=== PATIENT | female | born 1930 | race Caucasian/White ===

== ENCOUNTER 2016-10-31 15:25 | Inpatient (IN) | payer MEDICARE, OTHER ==
[~2016-10-31] VITALS: Ht 170.2 cm; Wt 71.8 kg
[2016-10-31] VITALS (8 sets, daily range): BP systolic 164–186; BP diastolic 70–100; PULSE 66–74; RESP 14–19; O2SAT 98–100
[~2016-10-31 15:25] MED LIST: FEM2.5T PO; GLPZ5T1 PO; LEVO50TA83 PO; Labetalol 5 mg/mL 20 mL Inj IV ONE; METO100T PO; MTF850T PO; OMEP20TA86 PO; ZOC20 PO
[2016-10-31] MEDS ORDERED: ASCO1TAB12 PO (15:50)
[2016-10-31] MEDS ORDERED: GLIM1TAB PO (15:50)
[2016-10-31] MEDS ORDERED: CALC-786 PO (15:50)
[2016-10-31] MEDS ORDERED: NITR100C PO (15:53)
[2016-10-31] MEDS ORDERED: METF1000 PO (15:53)
[2016-10-31] MEDS ORDERED: LOSA100T29 PO (15:53)
[2016-10-31] MEDS ORDERED: SIMV20TA4 PO (15:54)
[2016-10-31] MEDS ORDERED: LEVO50TA39 PO (15:54)
[2016-10-31] MEDS ORDERED: TOP100 PO (15:55)
[2016-10-31] MEDS ORDERED: CHOL100045 PO (15:55)
[2016-10-31 16:11] LABS: APPEARANCE,URINE CLEAR (CLEAR,HAZY); COLOR,URINE YELLOW (YELLOW); OCCULT BLOOD,URINE TRACE (NEGATIVE); PH,URINE 5.5 (5.0-8.0); UROBILINOGEN,URINE NORMAL (NORMAL)
--- NOTE | 2016-10-31 16:31 | NUR ---
Admit nurse note Admission assessment completed with assistance from records from Urgent Care. Pt. states she fell 6 months ago after stepping on a grape in the grocery store, and broke her shoulder. She fell again August 21 while trying to pull her grandkids down a hill on a makeshift sled. AT that time she hit her head on hard micky ground. She fell again approx 2 months ago while walking backwards carrying a chair. She states she tripped over the carpet edge. Pt. denies pain except in her Left neck when she turns her head to the left. is at bedside and attending MD in with pt. asking about wishes for level of care. Med history obtained via PCP list, pt. verifies. Allergies partially verified. Pt. does not remember any allergy aside from codeine. BP and IV care to be given on only Left arm due to hx of breast ca and partial mastectomy with 1 lymph removed on the right. Pt. oriented to care, as well as prevention of increased ICP. She is laying in the bed, relaxing, with at bedside. Report given to receiving DEONTE Cook.
[2016-10-31 16:35] LABS: BASOPHILS % (AUTO) 0.5 % (0-3); EOSINOPHILS % (AUTO) 1.9 % (0-5); MONOCYTES % (AUTO) 11.1 % (4-12); Mean Corpuscular Hemoglobin 30.5 pg (27.0-35.0); Mean Corpuscular Volume 87.7 fL (81-100); NEUTROPHILS % (AUTO) 65.7 % (40-74); Platelet Count 215 bil/L (150-400)
[2016-10-31] MEDS ORDERED: NiCARdipine Inj 25 MG in Dextrose 5% 240 ML IV SCH (16:40)
[2016-10-31 17:00] LABS: INR 0.92 ratio
--- NOTE | 2016-10-31 17:27 | NUR ---
Admit Pt brought over from in w/c. In report from it was stated pt's VSS were stable, but upon arrival pt's BP was 186/100. Pt situated in bed and advised to call if she needs to get up. paged. Pt A&O x 3, OLIVAS, RA, equal maintainer central office strength, pupils equal and reactive. Pt states she has a black spot in her peripheral vision of the right eye that has been there within the last two weeks. Admission done by admission RN. Pt oriented to room and call light.
[2016-10-31] MEDS ORDERED: Labetalol 5 mg/mL 20 mL Inj IV ONE (17:30)
--- NOTE | 2016-10-31 18:03 | NUR ---
Assist with Labetalol administration. Blood pressure 177/79, HR 66. Denies pain, marketing analytics lead equal, speech clear, face symmetrical. Labetolol 20mg given at 1755 with blood pressure 170/70 at six minutes after dose and 168/73 at 15 minutes. Update to be given to Dr Mccullough.
--- NOTE | 2016-10-31 19:29 | NUR ---
Transfer Pt transferred to room 2023 in w/c. Report given to DEONTE Mike. Pt's BP's still elevated. A&O x 3, BRENDON, denies pain.
--- NOTE | 2016-10-31 20:02 | PCM.HPMED ---
Subjective Date of Service Oct 31, 2016 Primary Provider: Admitting Physician: César Hunter Primary Care Physician: Aspen Lincoln Attending Physician: César Hunter Chief Complaint: Weak and dizzy. History of Present Illness: Ms. Ashley Phipps is a very pleasant 86 year old lady with a past medical history of Diabetes, Hyperlipidemia, Hypertension, and Hypothyroid who presents as a direct admit from the [facility] Urgent care due to CT findings of Acute on Chronic 10x5x2 cm Subdural Hematoma. She reports 3 falls in the last 6 months; First 6 months ago falling on her right shoulder, 3 months ago fell backwards and hit her head "hard" on the kitchen floor, and 08/21 fell in a field and once again hit the back of her had on the hard ground. She notes 1 month history of patchy loss of vision in her right eye, and 2 week history of "wall walking." She states during this time she was very unsteady on her feet and felt she would fall. She denies vertigo, syncope, headache, cognitive dysfunction or focal neurologic deficits such as limb weakness. She denies fever , chills, nausea, vomiting, chest pain or palpitations, shortness of breath, abdominal pain, constipation, diarrhea. She reports chronic incontinence of bowel and bladder. Of note:She has not been checking her blood pressure at home in the last 2 weeks. She reports recent difficulties with UTI's for which she has been on 3 different antibiotics in the recent months. Her recent visits to physicians have focused on her UTI as the main cause of her symptoms of weakness and dizziness. Social: She lives at home with her , Guillaume. Full code. Initial Vitals: T -36.4, HR - 69, RR - 16, BP - 186/100, 100 % RA. CT - Subdural chronic and acute hematoma over the left posterior frontal and parietal lobes with compression of the ventricles and sulci on the left. EKG was reviewed and showed normal sinus rhythm. She Received 5mg IV Labetalol x 2 pushes to reach SBP goal of <160. Review of Systems: A comprehensive review of systems was conducted with the patient and found to be negative except as above in the History of Present Illness. Constitutional: Negative, except as otherwise mentioned in the history above. Ophthalmologic: Negative, except as otherwise mentioned in the history above. Cardiovascular: Negative, except as otherwise mentioned in the history above. Respiratory: Negative, except as otherwise mentioned in the history above. Gastrointestinal: Negative, except as otherwise mentioned in the history above. Genitourinary: Negative, except as otherwise mentioned in the history above. Musculoskeletal: Negative, except as otherwise mentioned in the history above. Neurological: Negative, except as otherwise mentioned in the history above. Psychiatric: Negative, except as otherwise mentioned in the history above. Hematologic/Lymphatic: Negative, except as otherwise mentioned in the history above. Allergic/Immunologic: Negative, except as otherwise mentioned in the history above. Allergies Coded Allergies: codeine (Verified Allergy, Severe, very wobbly, tongue swelling, 10/31/16) Opioids - Morphine Analogues (Unverified Allergy, Unknown, doesn't remember this allergy, 10/31/16) hydrocodone bitartrate (Unverified Allergy, Unknown, doesn't remember this allergy, 10/31/16) hydromorphone (Unverified Allergy, Unknown, doesn't remember this allergy , 10/31/16) oxycodone (Unverified Allergy, Unknown, doesn't remember this allergy, 01/07) Home Medications Ascorbate Calcium/Bioflavonoid 2 each BID Calcium Carb & Cit/Vit D3 2 each BID Cholecalciferol 1000U BID Glimepiride 1 MG Daily AC Levothyroxine 50 Mcg Daily Losartan 100 Mg Daily Metformin 1000 MG BID Metoprolol Succinate ER 100 Mg Daily Nitrofurantoin Macrocrystal 100 MG BID Simvastatin 20 MG PO Q2Day Exam Vital Signs & I/O Intake and Output- Last 8 Hour 11/01/16 Cumulative From/Thru 06:59 10/31/16 16:33 - 10/31/16 19:29 Intake Total 0 ml Output Total 800 ml Balance -800 ml Intake Oral 0 ml Output Urine Total 800 ml # Bowel Movements 0 Lab & Micro Results Laboratory Tests Test 10/31/16 15:57 10/31/16 16:21 10/31/16 16:40 Urine Color Yellow (YELLOW) Urine Appearance Clear (CLEAR,HAZY) Urine pH 5.5 (5.0-8.0) Urine Specific [place] 1.010 (1.003-1.035) Urine Protein Negativemg/dL (NEG,TRACE) Urine Glucose (UA) Negativemg/dL (NEGATIVE) Urine Ketones Negativemg/dL (NEGATIVE) Urine Occult Blood Trace (NEGATIVE) Urine Nitrite Negative (NEGATIVE) Urine Bilirubin Negative (NEGATIVE) Urine Urobilinogen Normalmg/dL (NORMAL) Urine Leukocyte Esterase Trace (NEGATIVE) Urine RBC 0-2/hpf (0-2) Urine WBC 6-10/hpf (0-5) Urine Epithelial Cells Occasional/hpf (NONE-MOD) Urine Crystals None seen (NONE SEEN) Urine Bacteria None/hpf (NONE-FEW) Urine Hyaline Casts None/lpf (NONE) Urine Granular Casts None seen (NONE SEEN) Urine Waxy Casts None seen (NONE SEEN) Urine Red Blood Cell Casts None seen (NONE SEEN) Urine White Blood Cell Casts None seen (NONE SEEN) Urine Mucus None seen (None Seen) Urine Trichomonas None seen (NONE SEEN) Urine Yeast None (NONE SEEN) Urinalysis Comment None Urine Culture Reflexed Indicated White Blood Count 5.9th/mm3 (3.8-10.1) Red Blood Count 4.30mil/mm3 (3.90-5.20) Hemoglobin 13.1g/dL (12.0-15.6) Hematocrit 37.7% (35.0-46.0) Mean Corpuscular Volume 87.7fL (81-100) Mean Corpuscular Hemoglobin 30.5pg (27.0-35.0) Mean Corpuscular Hemoglobin Concent 34.7% (32.0-37.0) Red Cell Distribution Width 12.4% (12.3-15.4) Platelet Count 215bil/L (150-400) Neutrophils (%) (Auto) 65.7% (40-74) Lymphocytes (%) (Auto) 20.8% (14-46) Monocytes (%) (Auto) 11.1% (4-12) Eosinophils (%) (Auto) 1.9% (0-5) Basophils (%) (Auto) 0.5% (0-3) Sodium Level 129mEq/L (134-144) Potassium Level 4.3mEq/L (3.5-5.2) Chloride Level 91mEq/L (97-108) Carbon Dioxide Level 22mmol/L (18-29) Blood Urea Nitrogen 19mg/dL (8-27) Creatinine 0.64mg/dL (0.57-1.00) Estimat Glomerular Filtration Rate 126mL/min (>59) Glucose Level 124mg/dL (60-99) Calcium Level 10.0mg/dL (8.5-10.1) Total Bilirubin 0.2mg/dL (0.0-1.2) Aspartate Amino Transf (AST/SGOT) 13U/L (0-50) Alanine Aminotransferase (ALT/SGPT) 15U/L (0-32) Alkaline Phosphatase 82U/L (25-165) Total Protein 7.8g/dL (6.4-8.4) Albumin 4.5g/dL (3.4-5.0) Prothrombin Time 9.8sec (8.1-12.5) Prothromb Time International Ratio 0.92ratio Microbiology 10/31/16 Urine Culture - Preliminary, Resulted No growth to date Result Diagram: 10/31/16 1621 10/31/16 1621 PMH Urinary Urge incontinence Bowel incontinence Hypertension DM Hyperlipidemia Hypothyroid GERD Surgical History Cholecystectomy Family History Mother passed from pancreatic cancer Father Heart disease Social History Hx Alcohol Use: No Hx Substance Use: No Hx Tobacco Use: No Exam Vital Signs Vital Sign - Last Date Time Temp Pulse Resp B/P Pulse Ox O2 Delivery O2 Flow Rate FiO2 10/31/16 18:33 175/73 10/31/16 18:10 70 16 99 Room Air 10/31/16 17:32 36.4 Exam General: No acute distress, well-developed, well-nourished, appropriately interactive HEENT: Normocephalic, atraumatic. External ears without defect. Pupils equal, round, and reactive to light and accommodation. Patient reports a "blind spot" in the right eye upper right visual field. Anicteric sclerae, moist conjunctivae, and no lid lag. Oropharynx free of erythema and cobble stoning with moist mucosa. Neck: Supple with full range of motion. No jugular venous distension. No bruits. No lymphadenopathy or thyromegaly. Cardiovascular: Regular rate and rhythm with no murmurs, rubs, or gallops appreciated Pulmonary: Clear to auscultation bilaterally with no crackles, wheezes, or rhonchi. Normal respiratory effort with no use of accessory muscles. Abdomen: Bowel tones present. Soft, nontender, nondistended. No hepatosplenomegaly or masses appreciated. Extremities: No clubbing, cyanosis, edema, or lymphadenopathy appreciated. Skin: Normal temperature, turgor, and texture; no rash, ulcers, or subcutaneous nodules appreciated. Neurological: Cranial nerves grossly intact. Normal muscle strength, tone, and bulk. Reflexes, coordination, and sensory function within normal limits. Unsteady gait. Psychiatric: Normal mood and affect. Alert and oriented to person, place, and time. Lab and Diagnostics Result Diagram: 10/31/16 1621 10/31/16 1621 X-Rays, CTs and MRIs CT BRAIN WITHOUT CONTRAST IMPRESSION: Subdural chronic and acute hematoma over the left posterior frontal and parietal lobes with compression of the ventricles and sulci on the left. Approved by: Hai Burgess M.D. on 10/31/2016 at 14:39 Assessment & Plan Ms. Ashley Combs is an 86 year old lady with Hypertension, HLD, DM, Hypothyroid with 3 ground level falls in the past 6 months, 2 with traumatic head impact, who presents from the urgent care as a direct admit for CT findings of a 10x5x2 acute on chronic subdural hematoma. She is being treated for hypertension but otherwise stable at the moment. Acute on Chronic Subdural Hematoma. Present on admission. Active. - CT as above. - Control Blood pressure with SBP goal of < 160. - 5 mg labetalol IV 2x given. Will attempt to control with pushes. If this is difficult will transition to nicardipine ggt. - Working on Transfer. [facility] accepted, however no beds available. Attempting [facility]. - Repeat CT head to assess interval progression. Hypertension, present on admission. Active. - Patient claims medication compliance, not checking BP's at home. - Control Blood pressure with SBP goal of < 160. - 5 mg labetalol IV 2x given. Will attempt to control with pushes. If this is difficult will transition to nicardipine ggt. - Will resume home medications in the am. Losartan 100 Mg Daily and Metoprolol Succinate ER 100 mg Daily. Chronic conditions. Diabetes - Holding home Glimepiride 1 MG Daily AC- Metformin 1000 MG BID Hyperlipidemia - Continue home Simvastatin. Hypothyroid - Continue Levothyroxine 50 Mcg Daily Acetaminophen for mild pain when necessary. Bowel regimen Senna and MiraLAX scheduled and PRN. Zofran when necessary for nausea and vomiting. SubQ heparin held due to subdural hematoma. SCDs in place. Social: Lives at home with , Arben. High-risk medications: NONE. Patient Status: Patient is admitted under inpatient status with expected length of stay greater than 2 midnights due to severity of presenting symptoms, risk of adverse event, and complexity of treatment plan. Pain Evaluation: Adequate Pain Control VTE Mechanical Devices: Intermittant Pneumatic CD Resuscitation Status: CPR: Attempt Resuscitation Attending Statement The patient was seen and examined together with Dr. Mccullough on 10/31/16 and I agree with the history, exam and plan as outlined in the note above. It should be noted that given that patient had significant hypertension and acute subdural hematoma without any reported head trauma, the hypertension was felt to be hypertensive emergency. Plan was made to transfer patient to ICU for Nicardipine drip until she could be transferred to Neuro-ICU at higher level care facility. REGINA MCCULLOUGH DO Oct 31, 2016 19:23 César Hunter Nov 01, 2016 08:26
--- NOTE | 2016-10-31 20:03 | PCM.DIMED ---
Discharge Instructions Date of Service Oct 31, 2016 Dates of Hospitalization Oct 31, 2016 at 15:32 Discharge Diagnosis Discharge Diagnosis Acute on chronic Subdural Hematoma. Medication Instructions Additional med instructions Nicardipine ggt for SBP < 160. Test Results Test Results CT Head w/out contrast. IMPRESSION: Subdural chronic and acute hematoma over the left posterior frontal and parietal lobes with compression of the ventricles and sulci on the left Approved by: Hai Burgess M.D. on 10/31/2016 at 14:39 Patient Instructions Patient Instructions Transfer to [facility]. Follow-up plan Follow with the recommendations provided by the physician at [facility]. REGINA VU DO Oct 31, 2016 20:03
--- NOTE | 2016-10-31 20:08 | PCM.DC.MED ---
Discharge Summary Date of Service Oct 31, 2016 Dates of Hospitalization Date of Hospital Admission Oct 31, 2016 at 15:32 Date of Discharge: Oct 31, 2016 Providers: Admitting Physician: César Hunter Primary Care Physician: Aspen Lincoln Attending Physician: César Hunter Diagnosis at Time of Discharge Diagnosis at Time of Discharge Acute on chronic Subdural Hematoma. Procedures XRay, CTs & MRIs CT BRAIN WITHOUT CONTRAST IMPRESSION: Subdural chronic and acute hematoma over the left posterior frontal and parietal lobes with compression of the ventricles and sulci on the left. Approved by: Hai Burgess M.D. on 10/31/2016 at 14:39 Brief History Ms. Ashley Phipps is a very pleasant 86 year old lady with a past medical history of Diabetes, Hyperlipidemia, Hypertension, and Hypothyroid who presents as a direct admit from the [facility] care due to CT findings of Acute on Chronic 10x5x2 cm Subdural Hematoma. She reports 3 falls in the last 6 months; First 6 months ago falling on her right shoulder, 3 months ago fell backwards and hit her head "hard" on the kitchen floor, and 08/21 fell in a field and once again hit the back of her had on the hard ground. She notes 1 month history of patchy loss of vision in her right eye, and 2 week history of "wall walking." She states during this time she was very unsteady on her feet and felt she would fall. She denies vertigo, syncope, headache, cognitive dysfunction or focal neurologic deficits such as limb weakness. She denies fever , chills, nausea, vomiting, chest pain or palpitations, shortness of breath, abdominal pain, constipation, diarrhea. She reports chronic incontinence of bowel and bladder. Of note:She has not been checking her blood pressure at home in the last 2 weeks. She reports recent difficulties with UTI's for which she has been on 3 different antibiotics in the recent months. Her recent visits to physicians have focused on her UTI as the main cause of her symptoms of weakness and dizziness. Social: She lives at home with her , Guillaume. Full code. Initial Vitals: T -36.4, HR - 69, RR - 16, BP - 186/100, 100 % RA. CT - Subdural chronic and acute hematoma over the left posterior frontal and parietal lobes with compression of the ventricles and sulci on the left. EKG was reviewed and showed normal sinus rhythm. She Received 5mg IV Labetalol x 2 pushes to reach SBP goal of <160. Hospital Course Ms. Ashley Combs is an 86 year old lady with Hypertension, HLD, DM, Hypothyroid with 3 ground level falls in the past 6 months, 2 with traumatic head impact, who presents from the urgent care as a direct admit for CT findings of a 10x5x2 acute on chronic subdural hematoma. She is being treated for hypertension but otherwise stable at the moment. Acute on Chronic Subdural Hematoma. Present on admission. Active. - CT as above. - Control Blood pressure with SBP goal of < 160. - 5 mg labetalol IV 2x given. Will attempt to control with pushes. If this is difficult will transition to nicardipine ggt. - Working on Transfer. [facility] accepted, however no beds available. Attempting [facility] then . - Repeat CT head to assess interval progression. Hypertension, present on admission. Active. - Patient claims medication compliance, not checking BP's at home. - Control Blood pressure with SBP goal of < 160. - 5 mg labetalol IV 2x given. Will attempt to control with pushes. If this is difficult will transition to nicardipine ggt. - Will resume home medications in the am. Losartan 100 Mg Daily and Metoprolol Succinate ER 100 mg Daily. Chronic conditions. Diabetes - Holding home Glimepiride 1 MG Daily AC- Metformin 1000 MG BID Hyperlipidemia - Continue home Simvastatin. Hypothyroid - Continue Levothyroxine 50 Mcg Daily Acetaminophen for mild pain when necessary. Bowel regimen Senna and MiraLAX scheduled and PRN. Zofran when necessary for nausea and vomiting. SubQ heparin held due to subdural hematoma. SCDs in place. Social: Lives at home with , Arben. High-risk medications: NONE. Patient Status: Patient is admitted under inpatient status with expected length of stay greater than 2 midnights due to severity of presenting symptoms, risk of adverse event, and complexity of treatment plan. Exam Vital Signs (Last) Date Time Temp Pulse Resp B/P Pulse Ox O2 Delivery O2 Flow Rate FiO2 10/31/16 19:57 74 14 164/87 10/31/16 18:10 99 Room Air 10/31/16 17:32 36.4 Exam General: No acute distress, well-developed, well-nourished, appropriately interactive HEENT: Normocephalic, atraumatic. External ears without defect. Pupils equal, round, and reactive to light and accommodation. Patient reports a "blind spot" in the right eye upper right visual field. Anicteric sclerae, moist conjunctivae, and no lid lag. Oropharynx free of erythema and cobble stoning with moist mucosa. Neck: Supple with full range of motion. No jugular venous distension. No bruits. No lymphadenopathy or thyromegaly. Cardiovascular: Regular rate and rhythm with no murmurs, rubs, or gallops appreciated Pulmonary: Clear to auscultation bilaterally with no crackles, wheezes, or rhonchi. Normal respiratory effort with no use of accessory muscles. Abdomen: Bowel tones present. Soft, nontender, nondistended. No hepatosplenomegaly or masses appreciated. Extremities: No clubbing, cyanosis, edema, or lymphadenopathy appreciated. Skin: Normal temperature, turgor, and texture; no rash, ulcers, or subcutaneous nodules appreciated. Neurological: Cranial nerves grossly intact. Normal muscle strength, tone, and bulk. Reflexes, coordination, and sensory function within normal limits. Unsteady gait. Psychiatric: Normal mood and affect. Alert and oriented to person, place, and time. Test 10/31/16 15:57 10/31/16 16:21 10/31/16 16:40 Urine Color Yellow (YELLOW) Urine Appearance Clear (CLEAR,HAZY) Urine pH 5.5 (5.0-8.0) Urine Specific [place] 1.010 (1.003-1.035) Urine Protein Negativemg/dL (NEG,TRACE) Urine Glucose (UA) Negativemg/dL (NEGATIVE) Urine Ketones Negativemg/dL (NEGATIVE) Urine Occult Blood Trace (NEGATIVE) Urine Nitrite Negative (NEGATIVE) Urine Bilirubin Negative (NEGATIVE) Urine Urobilinogen Normalmg/dL (NORMAL) Urine Leukocyte Esterase Trace (NEGATIVE) Urine RBC 0-2/hpf (0-2) Urine WBC 6-10/hpf (0-5) Urine Epithelial Cells Occasional/hpf (NONE-MOD) Urine Crystals None seen (NONE SEEN) Urine Bacteria None/hpf (NONE-FEW) Urine Hyaline Casts None/lpf (NONE) Urine Granular Casts None seen (NONE SEEN) Urine Waxy Casts None seen (NONE SEEN) Urine Red Blood Cell Casts None seen (NONE SEEN) Urine White Blood Cell Casts None seen (NONE SEEN) Urine Mucus None seen (None Seen) Urine Trichomonas None seen (NONE SEEN) Urine Yeast None (NONE SEEN) Urinalysis Comment None Urine Culture Reflexed Indicated White Blood Count 5.9th/mm3 (3.8-10.1) Red Blood Count 4.30mil/mm3 (3.90-5.20) Hemoglobin 13.1g/dL (12.0-15.6) Hematocrit 37.7% (35.0-46.0) Mean Corpuscular Volume 87.7fL (81-100) Mean Corpuscular Hemoglobin 30.5pg (27.0-35.0) Mean Corpuscular Hemoglobin Concent 34.7% (32.0-37.0) Red Cell Distribution Width 12.4% (12.3-15.4) Platelet Count 215bil/L (150-400) Neutrophils (%) (Auto) 65.7% (40-74) Lymphocytes (%) (Auto) 20.8% (14-46) Monocytes (%) (Auto) 11.1% (4-12) Eosinophils (%) (Auto) 1.9% (0-5) Basophils (%) (Auto) 0.5% (0-3) Sodium Level 129mEq/L (134-144) Potassium Level 4.3mEq/L (3.5-5.2) Chloride Level 91mEq/L (97-108) Carbon Dioxide Level 22mmol/L (18-29) Blood Urea Nitrogen 19mg/dL (8-27) Creatinine 0.64mg/dL (0.57-1.00) Estimat Glomerular Filtration Rate 126mL/min (>59) Glucose Level 124mg/dL (60-99) Calcium Level 10.0mg/dL (8.5-10.1) Total Bilirubin 0.2mg/dL (0.0-1.2) Aspartate Amino Transf (AST/SGOT) 13U/L (0-50) Alanine Aminotransferase (ALT/SGPT) 15U/L (0-32) Alkaline Phosphatase 82U/L (25-165) Total Protein 7.8g/dL (6.4-8.4) Albumin 4.5g/dL (3.4-5.0) Prothrombin Time 9.8sec (8.1-12.5) Prothromb Time International Ratio 0.92ratio Discharge Medications Discharge Medications Ascorbate Calcium/Bioflavonoid (Lizeth-C 500 mg Tablet) 1 Each Tablet 2 EACH PO BID (Reported) Calcium Carb & Cit/Vitamin D3 (Citracal + D ER Tablet) 1 Each Tablet.er 2 EACH PO BID (Reported) Cholecalciferol (Vitamin D3) (Vitamin D) 1,000 Unit Capsule 2,000 UNIT PO DAILY (Reported) Glimepiride (Glimepiride) 1 Mg Tablet 1 MG PO DAILYAC (Reported) Levothyroxine (Levoxyl) 50 Mcg Tablet 50 MCG PO QAM (Reported) Losartan Potassium (Losartan Potassium) 100 Mg Tablet 100 MG PO DAILY (Reported ) Metformin (Glucophage) 1,000 Mg Tablet 1,000 MG PO BID (Reported) Metoprolol Succinate ER (Toprol XL) 100 Mg Tablet 100 MG PO DAILY (Reported) Nitrofurantoin Macrocrystal (Nitrofurantoin Macrocrystal) 100 Mg Capsule 100 MG PO BID (Reported) Simvastatin (Simvastatin) 20 Mg Tablet 20 MG PO Q2DAY (Reported) Additional med instructions Nicardipine ggt for SBP < 160. Followup Plan Disposition: Transfer to an acute care facility with a neurosurgery unit. Follow-up plan Follow with the recommendations provided by the physician at [facility]. Patient Instructions Transfer to [facility]. Time spent 40 min Attending Statement The patient was seen and examined together with Dr. Mccullough on 10/31/16 and I agree with the history, exam and plan as outlined in the note above. REGINA MCCULLOUGH DO Oct 31, 2016 20:08 César Hunter Nov 01, 2016 08:27
[2016-10-31] MEDS ORDERED: Nitrofurantoin Monohyd-Macrocryst 100 mg Capsule PO SCH (20:30)
--- NOTE | 2016-10-31 20:43 | DRSVH ---
PROCEDURE: CT BRAIN WITHOUT CONTRAST ([id number]) INDICATIONS: interval CT for SDH TECHNIQUE: Noncontrast 4.5 mm thick angled axial sections acquired from the foramen magnum to the vertex, with c oronal reformats. COMPARISON: None. FINDINGS: Image quality: Excellent. CSF spaces: Basal cisterns are patent. No new extra-axial fluid collections. The ventricles are un changed in size and shape. Brain: The previously identified left convexity subdural hematoma is again seen, with moderate assoc iated mass effect and internal radiodensity indicating subacute subdural hematoma rather than acute o r long-standing chronic hemorrhage. This structure measures approximately 10.2 cm maximal AP dimensi on and 2.0 cm in thickness with a transverse oblique dimension of 4.8 cm.. There is cerebral volume loss for age, with resultant ventricular and sulcal prominence. There are periventricular and deep w jennifer matter chronic small vessel ischemic changes. There is intracranial internal carotid artery ath erosclerosis. Skull and face: Calvarium and visualized facial bones appear intact, without suspicious lesions. Sinuses: Visualized sinuses and mastoids are clear. IMPRESSION: Subdural hematoma on the left as previously was present earlier today, without appreciab le manager of change time from the study that was performed at approximately 14:00 this afternoon. No new hemorrhage has developed, no change in mild to moderate mass effect on the left as was previously the case. Dictated by: Denis Bunn M.D. on 10/31/2016 at 20:37 Approved by: Denis Bunn M.D. on 10/31/2016 at 20:41
[2016-10-31] MEDS ORDERED: Polyethylene Glycol (PEG) 17 Gm Powder PO PRN (21:00)
[2016-10-31] MEDS ORDERED: Ondansetron 2 mg/mL 2 mL Inj IVPUSH PRN (21:00)
[2016-10-31] MEDS ORDERED: Alum-Mag Hydrox-Simeth 30 mL Suspension PO PRN (21:00)
--- NOTE | 2016-10-31 21:07 | NUR ---
Pt rec'd from [facility] at 1945. Denies pain, SBP 160's, all other VSS. BG 113. Able to ambulate SBA from WC to bed. Neuro eval WNL with exception of some dizziness and black spot in R peripheral vision. Taken for CT scan at 2014. Room available at [facility], report given to DEONTE Beckett in neuro ICU. Pt transported via [facility] at 2049.
[2016-11-01] MEDS ORDERED: MeTOProlol XL 50 mg ER24 Tablet PO SCH (08:30)
== END 2016-10-31 20:50 | disposition short-term general hospital (02) | DRG 65 ==
LOC: OSC 15:32 → PCC 20:00
PROVIDERS: ADMIT Internal Medicine; ATTEND Internal Medicine
DX: I62.01 Nontraumatic acute subdural hemorrhage (principal); I16.1 Hypertensive emergency; Z91.81 History of falling; E11.9 Type 2 diabetes mellitus without complications; E78.5 Hyperlipidemia, unspecified; E03.9 Hypothyroidism, unspecified; I10 Essential (primary) hypertension; I62.03 Nontraumatic chronic subdural hemorrhage

== ENCOUNTER 2016-11-08 11:39 | Inpatient (IN) | payer MEDICARE, OTHER ==
[~2016-11-08] VITALS: Ht 167.6 cm; Wt 71.2 kg
[~2016-11-08 11:39] MED LIST changes: +ASCO1TAB12 PO; +CALC-786 PO; +CHOL100045 PO; -FEM2.5T PO; +GLIM1TAB PO; -GLPZ5T1 PO; +LEVO50TA39 PO; -LEVO50TA83 PO; +LOSA100T29 PO; -Labetalol 5 mg/mL 20 mL Inj IV ONE; +METF1000 PO; -METO100T PO; -MTF850T PO; +NITR100C PO; -OMEP20TA86 PO; +SIMV20TA4 PO; +TOP100 PO; -ZOC20 PO
[2016-11-08 11:49] VITALS: BP 152/81; PULSE 70; RESP 14; O2SAT 97
--- NOTE | 2016-11-08 11:57 | ED.REPORT ---
HPI-General Illness Date of Service Nov 08, 2016 ED Provider: Ronald Conley Patient is an 86 year old female with a hx of Hypothyroid, HTN, hyperlipidemia, DM, and breast cancer who presents to the ED via EMS from [facility] complaining of AMS yesterday evening. Family noticed that she has had progressive weakness over the last new months that is worse since last night. Family reports that she could not move her R leg or R arm this morning. Associated symptoms include confusion and trouble completing sentences. Her symptoms are gradually improving. She is not able to provide hx for us at this time. She hospitalized 8 days ago for an acute on chronic subdural hematoma. A CT indicated a subdural chronic and acute hematoma over the left posterior frontal and parietal lobes with compression of the ventricles and sulci on the left. She was discharged from [facility] 5 days ago. She had a recent UTI for which she just finished abx for. Patient is DNR/DNI. Nursing Notes Stated Complaint: POSSIBLE CVA Chief Complaint: Neuro Symptoms/ Deficits Nursing Notes Reviewed: Yes Allergies: Coded Allergies: codeine (Verified Allergy, Severe, very wobbly, tongue swelling, 10/31/16) Opioids - Morphine Analogues (Unverified Allergy, Unknown, doesn't remember this allergy, 10/31/16) hydrocodone bitartrate (Unverified Allergy, Unknown, doesn't remember this allergy, 10/31/16) hydromorphone (Unverified Allergy, Unknown, doesn't remember this allergy , 10/31/16) oxycodone (Unverified Allergy, Unknown, doesn't remember this allergy, 01/07) Scheduled Ascorbate Calcium/Bioflavonoid (Lizeth-C 500 mg Tablet) 1 Each Tablet 2 EACH PO BID Calcium Carb & Cit/Vitamin D3 (Citracal + D ER Tablet) 1 Each Tablet.er 2 EACH PO BID Cholecalciferol (Vitamin D3) (Vitamin D) 1,000 Unit Capsule 2,000 UNIT PO DAILY Glimepiride (Glimepiride) 1 Mg Tablet 1 MG PO DAILYAC Levothyroxine (Levoxyl) 50 Mcg Tablet 50 MCG PO QAM Losartan Potassium (Losartan Potassium) 100 Mg Tablet 100 MG PO DAILY Metformin (Glucophage) 1,000 Mg Tablet 1,000 MG PO BID Metoprolol Succinate ER (Toprol XL) 100 Mg Tablet 100 MG PO DAILY Nitrofurantoin Macrocrystal (Nitrofurantoin Macrocrystal) 100 Mg Capsule 100 MG PO BID Simvastatin (Simvastatin) 20 Mg Tablet 20 MG PO Q2DAY General Time Seen by MD: 11:57 Chief Complaint Altered mental status Hx Obtained From: Other family... Arrived By: Ambulance Sudden in Onset?: Yes Onset Occurred: Yesterday Symptom Duration: Since onset Severity: Current: No pain currently Severity: Maximum: No pain Additional Notes: confusion trouble speaking Pertinent Negative: Relieved by nothing Context Related History: Reports Cancer Past Medical History Past Medical History Notes: DNR/DNI Past Medical History Hypothyroid Silent migrains HTN Hyperlipidemia Diverticulosis GERD DM R breast cancer Acute on chronic subdural hematoma Past Surgical History lumpectomy partial mastectomy Reports: Appendectomy, Cataract surgery, Cholecystectomy Unable to Obtain History Past medical history, Past surgical history, Family history, Smoking history, Social history, Occupation, Ambulatory status Review of Systems Unable to Obtain ROS Patient condition, Mental status Physical Exam Nursing note and vitals reviewed. Constitutional: Well-developed, well-nourished. Not diaphoretic. Head: Normocephalic and atraumatic. Mouth/Throat: Oropharynx is clear and moist. No oropharyngeal exudate. Eyes: EOM are normal. Pupils are equal, round, and reactive to light. Neck: Supple, no tracheal deviation. Cardiovascular: Normal rate, regular rhythm. Equal and intact distal pulses throughout. Pulmonary/Chest: Effort normal and breath sounds luis a. No respiratory distress. Abdominal: Soft. No distension. There is no tenderness, rebound, or guarding. Bowel sounds present. Musculoskeletal: Range of motion grossly intact. No edema or tenderness appreciated. Neurological: Alert. Sensation intact and equal to bilateral upper and lower extremities. 5+ left lower extremity strength, 4+ right lower extremity strength. Weakness with flexion of the R arm. No facial droop. Skin: Warm and dry, no rashes or pallor appreciated. Psychiatric: Difficult to assess secondary to patient condition. Vital Signs Vital Signs Date Time Temp Pulse Resp B/P Pulse Ox O2 Delivery O2 Flow Rate FiO2 11/08/16 15:30 69 12 146/63 99 Room Air 11/08/16 14:24 74 15 135/76 99 Room Air 11/08/16 12:59 76 14 175/73 99 Room Air 11/08/16 11:49 37.1 70 14 152/81 97 Room Air Initial VS: Reviewed Interpretation & Diagnostics Lab Results Interpretation Result Diagram: 11/08/16 1447 11/08/16 1447 Test 11/08/16 13:36 11/08/16 14:47 Urine Color Straw (YELLOW) Urine Appearance Hazy (CLEAR,HAZY) Urine pH 7.0 (5.0-8.0) Urine Specific Pratt 1.010 (1.003-1.035) Urine Protein Negativemg/dL (NEG,TRACE) Urine Glucose (UA) 100mg/dL (NEGATIVE) Urine Ketones Negativemg/dL (NEGATIVE) Urine Occult Blood Trace (NEGATIVE) Urine Nitrite Negative (NEGATIVE) Urine Bilirubin Negative (NEGATIVE) Urine Urobilinogen Normalmg/dL (NORMAL) Urine Leukocyte Esterase Small (NEGATIVE) Urine RBC 3-10/hpf (0-2) Urine WBC 11-50/hpf (0-5) Urine Epithelial Cells Occasional/hpf (NONE-MOD) Urine Crystals None seen (NONE SEEN) Urine Bacteria Few/hpf (NONE-FEW) Urine Hyaline Casts None/lpf (NONE) Urine Granular Casts None seen (NONE SEEN) Urine Waxy Casts None seen (NONE SEEN) Urine Red Blood Cell Casts None seen (NONE SEEN) Urine White Blood Cell Casts None seen (NONE SEEN) Urine Mucus None seen (None Seen) Urine Trichomonas None seen (NONE SEEN) Urine Yeast None (NONE SEEN) Urinalysis Comment None Urine Culture Reflexed Indicated White Blood Count 6.1th/mm3 (3.8-10.1) Red Blood Count 4.37mil/mm3 (3.90-5.20) Hemoglobin 13.4g/dL (12.0-15.6) Hematocrit 38.0% (35.0-46.0) Mean Corpuscular Volume 87.0fL (81-100) Mean Corpuscular Hemoglobin 30.7pg (27.0-35.0) Mean Corpuscular Hemoglobin Concent 35.3% (32.0-37.0) Red Cell Distribution Width 12.2% (12.3-15.4) Platelet Count 206bil/L (150-400) Neutrophils (%) (Auto) 66.4% (40-74) Lymphocytes (%) (Auto) 21.9% (14-46) Monocytes (%) (Auto) 8.9% (4-12) Eosinophils (%) (Auto) 2.3% (0-5) Basophils (%) (Auto) 0.5% (0-3) Sodium Level 134mEq/L (134-144) Potassium Level 4.3mEq/L (3.5-5.2) Chloride Level 94mEq/L (97-108) Carbon Dioxide Level 22mmol/L (18-29) Blood Urea Nitrogen 14mg/dL (8-27) Creatinine 0.63mg/dL (0.57-1.00) Estimat Glomerular Filtration Rate 128mL/min (>59) Glucose Level 93mg/dL (60-99) Calcium Level 9.7mg/dL (8.5-10.1) Magnesium Level 1.8mg/dL (1.6-2.6) Total Bilirubin 0.4mg/dL (0.0-1.2) Aspartate Amino Transf (AST/SGOT) 19U/L (0-50) Alanine Aminotransferase (ALT/SGPT) 32U/L (0-32) Alkaline Phosphatase 70U/L (25-165) Total Protein 7.8g/dL (6.4-8.4) Albumin 4.1g/dL (3.4-5.0) Alcohols < 10mg/dL (0-10) X-Ray Chest Interpretation Chest Xray Interpretation: IMPRESSION: No acute pulmonary process. 9 mm ill-defined right basilar nodular opacity as above. It is not well identified on prior exam. Three-month interval followup is recommended. Dictated by: Rehana Edwadrs M.D. on 11/08/2016 at 14:36 Approved by: Rehana Edwards M.D. on 11/08/2016 at 14:38 View: Portable, 1 view Interpretation / Wet Read by: Interpret - Radiologist CT Head Interpretation IMPRESSION: 1. Evolving left frontal subdural hematoma compared to 10/31/16 with areas of hyperdensity concerning for superimposed acute hemorrhage. 2. Moderate atrophy and chronic microvascular ischemic changes. The findings were discussed with Dr. Ronald Conley on 11/08/16 at 1:34 PM. Dictated by: Rehana Edwards M.D. on 11/08/2016 at 13:32 Approved by: Rehana Edwards M.D. on 11/08/2016 at 13:39 Study: Head CT no contrast Interpretation / Wet Read by: Interpret - Radiologist Re-Eval/Medical Decision Med Decision/Clinical Course In summary, 86 old female with a recent history of fall and subdural hematoma presenting to the ED for evaluation of altered mental status, right-sided weakness that started yesterday. Differential includes metabolic abnormality, systemic infectious process, CVA, worsening of her underlying subdural hematoma , etc. TPA was considered in this patient, however not given given that she has a known subdural hematoma. Her repeat CT scan demonstrates an evolving left sided subdural hematoma with concern for possible acute hemorrhage. [facility] neurosurgery Dr. Cook consulted; after examining the images, he feels that this is not an acute bleed and that the membrane around the area of concern is thicker, not representing any new injury that would require intervention at this time. He does not recommend transfer or further intervention with neurosurgery aside from routine follow-up. Vitals here in the ED grossly within normal limits with the exception of some mild hypertension. CMP grossly within normal limits. CBC grossly within normal limits. Urinalysis demonstrates 11-50 white blood cells and a small amount of leukocyte esterase, as well as occasional epithelial cells; family states that the patient has been on antibiotics for urinary tract infection for "months". She has not been endorsing any dysuria. Given somewhat equivocal urinalysis, this seems less likely to be causing her acute change advisor the last 24 hours, however it may be contributing. Started on antibiotics here in the ED. Chest x -ray with no acute pulmonary process; there is a 9 mm ill-defined right basilar nodular opacity - this was discussed with the patient and her family, including the need for follow-up as an outpatient. In the setting of new confusion, some changes in her level of disorientation, and intermittent right-sided weakness, plan admission for further management and evaluation of altered mental status and suspected CVA. Patient and family are agreeable to the plan as stated, no further questions. Source of Hx: Old records, Family Time of Eval: 14:55 Re-Evaluation/Progress Note: Discussed chest Xray result with patient and family. Consultation : Call Returned at: 15:04 Note: Attempted to discuss pt's case with [facility] Neurosurgery but they have been unable to access imaging. Will try to send images and make contact again. Counseled Regarding: Diagnosis, Lab results, Need for follow-up, Need for admission Discharge & Departure Primary Impression: Altered mental status, unspecified Additional Impressions: CVA (cerebral vascular accident) CVA mechanism: unspecified Qualified Code: I63.9 - Cerebral infarction, unspecified Subdural hematoma UTI (urinary tract infection) Urinary tract infection type: site unspecified Hematuria presence: without hematuria Qualified Code: N39.0 - Urinary tract infection, site not specified Disposition: ADMITTED TO HOSPITAL Discharge Condition All VS Reviewed: Yes Condition: Stable Referrals: [facility] (PCP) Crit Care Except Billable Proc Time Spent: 75-104 minutes Services Performed: Patient management by me, Time spent at bedside, Reviewing test results, Reviewing imaging, Discussing patient care, Documentation in record, Time with fam/surrogate Critical Care Notes: Please see MDM. [place] Attestation Portions of this note were transcribed by Galina Jones. I, Dr. Conley personally performed the history, physical exam and medical decision-making; I reviewed and confirmed the accuracy of the information in the transcribed note. Signed by: Diallo Ashton, 11/08/16 copies to: [facility] William B MD Nov 08, 2016 11:57 GALINA JONES Nov 08, 2016 14:17
[2016-11-08 12:59] VITALS: BP 175/73; PULSE 76; RESP 14; O2SAT 99
--- NOTE | 2016-11-08 13:41 | DRSVH ---
PROCEDURE: CT BRAIN WITHOUT CONTRAST ([id number]) INDICATIONS: neuro changes TECHNIQUE: Noncontrast 4.5 mm thick angled axial sections acquired from the foramen magnum to the vertex, with c oronal reformats. COMPARISON: [facility], CT, CT BRAIN WO CON, 10/31/2016, 13:55. [facility], CT, CT BRAIN WO CON, 10/31/2016, 20:19. FINDINGS: Image quality: Excellent. CSF spaces: Basal cisterns are patent. No extra-axial fluid collections. The ventricles are symmet kenyetta in size and shape. Brain: The previously identified subdural hematoma along the left frontal lobe has demonstrated inte rval evolving post hemorrhage changes. There are development of areas of low-attenuation consistent w ith resolving previous hemorrhage. However, there are several areas of hyperdensity, which are concer mt to have developed since the prior exam. Questionable 1-2 mm left to right midline shift, unchang ed. There is cerebral volume loss for age, with resultant ventricular and sulcal prominence. There are p eriventricular and deep white matter chronic small vessel ischemic changes. There is intracranial in ternal carotid artery atherosclerosis. Skull and face: Calvarium and visualized facial bones appear intact, without suspicious lesions. Sinuses: Visualized sinuses and mastoids are clear. IMPRESSION: 1. Evolving left frontal subdural hematoma compared to 10/31/16 with areas of hyperdensity concerning for superimposed acute hemorrhage. 2. Moderate atrophy and chronic microvascular ischemic changes. The findings were discussed with Dr. Ronald Conley on 11/08/16 at 1:34 PM. Dictated by: Rehana Edwards M.D. on 11/08/2016 at 13:32 Approved by: Rehana Edwards M.D. on 11/08/2016 at 13:39
[2016-11-08 14:01] LABS: APPEARANCE,URINE HAZY (CLEAR,HAZY); COLOR,URINE STRAW (YELLOW)
[2016-11-08 14:02] LABS: OCCULT BLOOD,URINE TRACE (NEGATIVE); UROBILINOGEN,URINE NORMAL (NORMAL)
[2016-11-08 14:24] VITALS: BP 135/76; PULSE 74; RESP 15; O2SAT 99
--- NOTE | 2016-11-08 14:40 | DRSVH ---
PROCEDURE: X-RAY CHEST ONE VIEW, PORTABLE ([id number]) INDICATIONS: AMS TECHNIQUE: One view of the chest was acquired. COMPARISON: [facility], , CHEST 2VW, 04/06/2012, 14:12. FINDINGS: Surgical changes and devices: None. Lungs and pleura: Ill-defined nodular opacity is present within the right base measuring approximatel y 9 mm. This may have been present on prior exam, although this area is not as well visualized. Mediastinum: Mediastinal contours appear normal. Heart size is normal. Bones and chest wall: No suspicious bony lesions. Overlying soft tissues appear unremarkable. IMPRESSION: No acute pulmonary process. 9 mm ill-defined right basilar nodular opacity as above. It is not well identified on prior exam. Three-month interval followup is recommended. Dictated by: Rehana Edwards M.D. on 11/08/2016 at 14:36 Approved by: Rehana Edwards M.D. on 11/08/2016 at 14:38
[2016-11-08 14:54] LABS: BASOPHILS % (AUTO) 0.5 % (0-3); EOSINOPHILS % (AUTO) 2.3 % (0-5); MONOCYTES % (AUTO) 8.9 % (4-12); Mean Corpuscular Hemoglobin 30.7 pg (27.0-35.0); NEUTROPHILS % (AUTO) 66.4 % (40-74); Platelet Count 206 bil/L (150-400)
[2016-11-08 15:17] LABS: Magnesium 1.8 mg/dL (1.6-2.6)
[2016-11-08 15:30] VITALS: BP 146/63; PULSE 69; RESP 12; O2SAT 99
[2016-11-08] MEDS ORDERED: ACET325T51 PO (17:17)
[2016-11-08] MEDS ORDERED: MAGN400O4 PO (17:17)
[2016-11-08] MEDS ORDERED: NA P133E23 RC (17:17)
[2016-11-08] MEDS ORDERED: BISA10SU61 RC (17:17)
[2016-11-08] MEDS ORDERED: POLY17PO6 PO (17:17)
[2016-11-08] MEDS ORDERED: ASCO-294 PO (17:20)
[2016-11-08] MEDS ORDERED: LOSA50TA37 PO (17:21)
[2016-11-08] MEDS ORDERED: levoFLOXacin Inj 750 MG in IV Premix 1 EACH IV ONE (17:25)
[2016-11-08] MEDS ORDERED: Ondansetron 2 mg/mL 2 mL Inj IVPUSH PRN (18:00)
[2016-11-08] MEDS ORDERED: Alum-Mag Hydrox-Simeth 30 mL Suspension PO PRN (18:00)
--- NOTE | 2016-11-08 18:04 | PCM.HPMED ---
Subjective Date of Service Nov 08, 2016 Primary Provider: Admitting Physician: Fidencio Ferguson MD Primary Care Physician: [facility] Attending Physician: Fidencio Ferguson MD Chief Complaint: Altered Mental Status History of Present Illness: Patient is an 86y/o female with past medical history of HTN, DM type II non insulin dependent, R Breast Cancer, and hypothyroid presented to [facility] ED with altered mental status and right sided weakness. Patient was seen at [facility] two weeks ago for a left subdural hematoma. A CT indicated a subdural chronic and acute hematoma over the left posterior frontal and parietal lobes with compression of the ventricles and sulci on the left. She was discharged from [facility] 5 days ago. Today, patient's daughter visited her at [facility], and noticed that she was not able to complete her sentences, and would stop speaking in the middle of her thoughts. She would say "I don't understand what is going on." She also reported increasing right upper extremity and right lower extremity. Patient was unable to initiate any movement in her right arm. It is noted that the patient had residual right sided weakness from the subdural one week ago. Patient answers questions regarding current physical state, but does not remember the events leading up to her visit here. Daughter states that she has had 3-4 falls since July and August. She currently denies CP, SOB, ABD pain, N/V/D, headache, difficulty urinating, urinary hesitancy, or back pain. In the ED, patient received a CT noncontrast of brain. Her repeat CT scan demonstrates an evolving left sided subdural hematoma with concern for possible acute hemorrhage. [facility] neurosurgery Dr. Cook consulted; after examining the images, he feels that this is not an acute bleed and that the membrane around the area of concern is thicker, not representing any new injury that would require intervention at this time. He does not recommend transfer or further intervention with neurosurgery aside from routine follow-up. per Dr. Yael MD Review of Systems: ROS reviewed and otherwise negative unless noted above Allergies Coded Allergies: codeine (Verified Allergy, Severe, very wobbly, tongue swelling, 10/31/16) Opioids - Morphine Analogues (Unverified Allergy, Unknown, doesn't remember this allergy, 10/31/16) hydrocodone bitartrate (Unverified Allergy, Unknown, doesn't remember this allergy, 10/31/16) hydromorphone (Unverified Allergy, Unknown, doesn't remember this allergy , 10/31/16) oxycodone (Unverified Allergy, Unknown, doesn't remember this allergy, 01/07) Home Medications Ascorbate Calcium/Bioflavonoid (Lizeth-C 500 mg Tablet) 1 Each Tablet 2 EACH PO BID Calcium Carb & Cit/Vitamin D3 (Citracal + D ER Tablet) 1 Each Tablet.er 2 EACH PO BID Cholecalciferol (Vitamin D3) (Vitamin D) 1,000 Unit Capsule 2,000 UNIT PO DAILY Glimepiride (Glimepiride) 1 Mg Tablet 1 MG PO DAILYAC Levothyroxine (Levoxyl) 50 Mcg Tablet 50 MCG PO QAM Losartan Potassium (Losartan Potassium) 100 Mg Tablet 100 MG PO DAILY Metformin (Glucophage) 1,000 Mg Tablet 1,000 MG PO BID Metoprolol Succinate ER (Toprol XL) 100 Mg Tablet 100 MG PO DAILY Nitrofurantoin Macrocrystal (Nitrofurantoin Macrocrystal) 100 Mg Capsule 100 MG PO BID Simvastatin (Simvastatin) 20 Mg Tablet 20 MG PO Q2DAY PMH Hypothyroid Silent migrains HTN Hyperlipidemia Diverticulosis GERD DM R breast cancer Acute on chronic subdural hematoma Surgical History lumpectomy partial mastectomy Appendectomy Cataract surgery Cholecystectomy Family History Father: Cancer, Diabetes Mother: Cancer Social History Occupation: Retired Hx Alcohol Use: No Hx Substance Use: No Hx Tobacco Use: No Living Arrangement: Long-Term Facility Exam Vital Signs Vital Sign - Last Date Time Temp Pulse Resp B/P Pulse Ox O2 Delivery O2 Flow Rate FiO2 11/08/16 15:30 69 12 146/63 99 Room Air 11/08/16 11:49 37.1 Exam Constitutional: Awake, but tired appearing. Not oriented to person, place, time , or situation. Frail. No acute distress. Head: normocephalic and atraumatic Eyes: Pupils equal round and reactive to light. EOMI. no scleral icterus. Visual gallegos poor; however, she was not able to determine how many fingers I held up when they were right in front of her. Patient has no reported history of visual deficits. Heart: regular rate and rhythm. No peripheral edema. Lungs: clear to auscultation. no wheeze, rales, or rhonchi. ABD: soft, mild tenderness in suprapubic region with associated fullness. bowel sounds present throughout. Musculoskeletal: Able to lift LUE and LLE off of bed. 5/5 vine pruner strength on L hand, 2/5 vine pruner strength with inability to relax in R hand. Inability to hold RUE extended for more than 6 seconds. Skin: warm, dry, no rash Neuro: CN II-XII intact, no focal deficits. Good sensation in bilateral UE and LE. weakness of RUE. Inability to lift RLE off of bed. Psych: Flat affect. not oriented to person, place, time, or situation. Would not provide an answer, but would just say "I don't know" Lab and Diagnostics Labs Item Value Date Time Red Blood Count 4.37 mil/mm3 11/08/161446 Mean Corpuscular Volume 87.0 fL 11/08/161446 Mean Corpuscular Hemoglobin 30.7 pg 11/08/161446 Mean Corpuscular Hemoglobin Concent 35.3 % 11/08/161446 Red Cell Distribution Width 12.2 % L 11/08/161446 Neutrophils (%) (Auto) 66.4 % 11/08/16 144 Lymphocytes (%) (Auto) 21.9 % 11/08/16 144 Monocytes (%) (Auto) 8.9 % 11/08/16 144 Eosinophils (%) (Auto) 2.3 % 11/08/16 144 Basophils (%) (Auto) 0.5 % 11/08/161446 Estimat Glomerular Filtration Rate 128 mL/min 11/08/16 144 Calcium Level 9.7 mg/dL 11/08/161446 Magnesium Level 1.8 mg/dL 11/08/16 144 Total Bilirubin 0.4 mg/dL 11/08/16 144 Aspartate Amino Transf (AST/SGOT) 19 U/L 11/08/16 144 Alanine Aminotransferase (ALT/SGPT) 32 U/L 11/08/16 144 Alkaline Phosphatase 70 U/L 11/08/16 144 Total Protein 7.8 g/dL 11/08/16 144 Albumin 4.1 g/dL 11/08/16 1447 Alcohols < 10 mg/dL 11/08/16 144 Result Diagram: 11/08/16 14411/08/16 1447 Microbiology Urine Culture Pending X-Rays, CTs and MRIs PROCEDURE: CT BRAIN WITHOUT CONTRAST IMPRESSION: 1. Evolving left frontal subdural hematoma compared to 10/31/16 with areas of hyperdensity concerning for superimposed acute hemorrhage. 2. Moderate atrophy and chronic microvascular ischemic changes. The findings were discussed with Dr. Ronald Conley on 11/08/16 at 1:34 PM. Dictated by: Rehana Edwards M.D. on 11/08/2016 at 13:32 PROCEDURE: X-RAY CHEST ONE VIEW, PORTABLE IMPRESSION: No acute pulmonary process. 9 mm ill-defined right basilar nodular opacity as above. It is not well identified on prior exam. Three-month interval followup is recommended. Dictated by: Rehana Edwards M.D. on 11/08/2016 at 14:36 12-lead ECG Sinus arrhythmia Assessment & Plan Patient is an 86y/o female with past medical history of HTN, DM type II non insulin dependent, R Breast Cancer, and hypothyroid presented to [facility] ED with altered mental status and right sided weakness. Patient was seen at [facility] two weeks ago for a left subdural hematoma. 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 Patient stable at this time, [facility] has been consulted on these changes and feels patient is stable enough to stay overnight for AM MRI - MRI scheduled for tomorrow morning. Will discuss findings with neurosurgery pending results. - Consult neurology. -Permissive hypertension. Keep blood SBP 165 to 180. Do not use acute blood pressure lowering agents as this could cause an ischemic event. -Avoid nephrotoxic agents as patient will likely receive contrast for AM MRI. -Avoid anticoagulation. Use SCDs. Acute Cystitis, POA, Active -Positive leukocyte esterase with WBCs on UA -Levaquin IV, adjust or remove pending culture - Urine cultures pending Diabetes Mellitus type II, Chronic, POA, active. - patient takes metformin and Glimepiride -Continue Glimepiride -Hold metformin -Insuling gtt Hypothyroidism, chronic, POA, active - Patient NPO, start 25mcg levothyroxine IM Hypertension, chronic, POA, active - patient takes Losartan and metoprolol succinate - Hold home meds for permissive hypertension Famotidine for PPI Acetaminophen for pain Dulcolax for Constipation SCD for DVT prophylaxis Patient is admitted to inpatient status with anticipated length of stay greater than 2 mid nights, this is based on diagnosis, treatment plan, and risk of adverse events. CODE STATUS: DNR/DNI VTE Prophylaxis: SCDs Resuscitation Status: DNR/DNI:Do Not Resuscitate/Intubate Pain Evaluation: Adequate Pain Control GI Prophylaxis: Proton Pump Inhibitor VTE Prophylaxis Indicated: Contraindicated VTE Prophylaxis: SCDs Resuscitation Status: DNR/DNI:Do Not Resuscitate/Intubate Limited Interventions: Medications and IV Fluid Attending Statement Given the mental status changes and word finding difficulty present on admission , there is some concern for acute cerebrovascular event. MRI will be conducted as described above in Dr. Gillesipe's note. The patient was seen and examined together with Dr. Gillespie on 11/08/2016 and I agree with the history, exam and plan as outlined in the note above. . Moo Gillespie DO Nov 08, 2016 18:04 Fidencio Ferguson MD Nov 09, 2016 06:19
[2016-11-08] MEDS ORDERED: Magnesium Hydroxide 355 mL Oral Suspension PO PRN (18:05)
[2016-11-08] MEDS ORDERED: Glucose 40% Oral Gel 15 Gm Tube PO PRN (18:05)
[2016-11-08] MEDS ORDERED: Polyethylene Glycol (PEG) 17 Gm Powder PO PRN (18:05)
[2016-11-08] MEDS ORDERED: Sodium Biphos-Phos 133 mL Enema RECTAL PRN (18:05)
[2016-11-08 18:28] VITALS: BP 170/66; PULSE 82; RESP 12; O2SAT 98
[2016-11-08 19:07] VITALS: BP 195/83; PULSE 80; RESP 16; O2SAT 98
[2016-11-08] MEDS: Calcium Carbonate (Oyster Shell) 500 mg Tablet PO SCH (20:25)
--- NOTE | 2016-11-08 20:26 | NUR ---
ADMIT; 86 yr old female with altered mental status, recent subdural hematoma to room 1020 via gurney from e.r. at approx. 1900. Answers questions with few words. Can't express where she is. Able to stratigraphy teacher my hand with her right hand. Lavon. Doesn't move right leg. Stephania #16fr placed at 2019, with light yellow urine resulting. Family at the bedside. Explained plan of care to family. Active listening done. NPO tonight. Addendum: 11/08/16 at 2337 by HONG MONTES DE OCA RN slight right side mouth droop when smiling.
[2016-11-08] MEDS: Famotidine Inj 20 MG in IV Premix 1 EACH IV SCH (21:40)
[2016-11-08] MEDS: Insulin LISPRO 300 Unit/3 mL Inj SUBQ SCH (22:00)
[2016-11-09] VITALS (8 sets, daily range): BP systolic 144–173; BP diastolic 72–88; PULSE 66–83; RESP 16–18; O2SAT 93–98
--- NOTE | 2016-11-09 03:41 | NUR ---
CRIMINOLOGY TEACHER; reports: sinus rhythm 83.
--- NOTE | 2016-11-09 04:03 | NUR ---
CV; bp 160/73. No c/o pain. Neuro checks remain unchanged from my earlier assessment.
[2016-11-09] MEDS ORDERED: Levothyroxine 100 mCg/5 mL Inj IV SCH (07:30)
--- NOTE | 2016-11-09 07:50 | NUR ---
Status 0730 MD notified that MRI/swallow eval have not yet been ordered. MD to review.
[2016-11-09] MEDS: Calcium Carbonate (Oyster Shell) 500 mg Tablet PO SCH ×2 (08:00→17:31)
[2016-11-09] MEDS: Famotidine Inj 20 MG in IV Premix 1 EACH IV SCH ×2 (08:30→20:19)
[2016-11-09] MEDS: Insulin LISPRO 300 Unit/3 mL Inj SUBQ SCH ×4 (09:24→22:12)
--- NOTE | 2016-11-09 11:21 | DRSVH ---
PROCEDURE: MRI BRAIN WITHOUT CONTRAST ([id number]) INDICATIONS: Altered mental status and right-sided weakness with subdural hematoma. TECHNIQUE: Non-contrast axial T1 spin echo, axial T2 fast spin echo, sagittal and axial FLAIR, coronal T2 fast s pin echo, axial gradient echo, axial diffusion and ADC through the brain. COMPARISON: [facility], CT, CT BRAIN WO CON, 10/31/2016, 20:19. [facility], CT, CT BRAIN WO CON, 11/08/2016, 13:19. FINDINGS: Image quality: Excellent. CSF spaces: There is a moderate to large left subdural hematoma redemonstrated at the vertex measuri ng up to 2.2 cm in thickness on coronal image 21 of series 10. This appears similar in size compared to the prior CT of 11/08/16 but slightly increased compared to the 10/31/16 study on which it measured approximately 1.9 cm. There is associated mass effect on the left frontal and parietal lobes with m inimal rightward midline shift of approximately 3 mm. There is also slight asymmetric narrowing of t he left basilar cisterns without definite transtentorial herniation. There is mild cerebral volume l oss with prominence of the ventricles and sulci. Brain: Diffusion weighted images demonstrate no acute infarcts. No intracranial mass. There are sc attered subcortical, periventricular, and deep white matter foci of T2 hyperintensity consistent with mild chronic small vessel ischemic changes. Brainstem appears normal. Normal intravascular flow vo ids are present. Skull and face: Calvarial bone marrow is normal in signal. Orbits are normal. Sinuses: There is mild mucosal thickening within the ethmoid sinuses. Mastoid air cells are clear. IMPRESSION: 1. Left subdural hematoma at the vertex appears similar in size compared to the recent CT but slight ly increased in size compared to the 10/31/16 CT suggesting interval hemorrhage. 2. Progressive increase in mild mass effect with slight rightward midline shift and slight asymmetri c narrowing of the left basilar cisterns without definite transtentorial herniation. 3. No acute infarcts. 4. Mild chronic white matter small vessel ischemic changes and cerebral volume loss. Dictated by: Josh Vicente M.D. on 11/09/2016 at 10:09 Approved by: Josh Vicente M.D. on 11/09/2016 at 10:20
--- NOTE | 2016-11-09 12:33 | NUR ---
Meds ok with non admin of pepcid this am. To resume with evening dose
--- NOTE | 2016-11-09 12:41 | NUR ---
Speech Unable to reach speech today. Per MD if pt able to pass nurse bedside swallow eval may have po meds. Looking for RN for bedside swallow.
[2016-11-09] MEDS: MeTOProlol XL 50 mg ER24 Tablet PO SCH (13:42)
--- NOTE | 2016-11-09 13:59 | NUR ---
Meds Per MD at 1300, pt ok to receive BP meds with goal SBP less than 140. HR stable. MD to dc speech eval and place diet order as pt only needs to pass nurse swallow eval. Addendum: 11/09/16 at 1511 by NATALY QUINN RN Pt may have thins liquids
--- NOTE | 2016-11-09 14:39 | PCM.PNMED ---
Subjective Date of Service Nov 09, 2016 Subjective Continues to right-sided weakness unchanged from presentation. Mentation improved and patient interactive. Exam Vital Signs Vital Sign - Last Date Time Temp Pulse Resp B/P Pulse Ox O2 Delivery O2 Flow Rate FiO2 11/09/16 13:39 78 145/81 97 Room Air 11/09/16 11:13 36.6 18 Intake and Output 11/08/16 11/08/16 11/09/16 Cumulative From/Thru 15:00 23:00 07:00 11/08/16 11:49 - 11/09/16 06:07 Intake Total 150 ml 0 ml 150 ml Output Total 0 ml 1000 ml 1000 ml Balance 150 ml -1000 ml -850 ml Intake Oral 0 ml 0 ml 0 ml IV Total 150 ml 150 ml Output Urine Total 0 ml 1000 ml 1000 ml # Bowel Movements 0 0 Exam Constitutional: Awake, but tired appearing. Not oriented to person, place, time , or situation. Frail. No acute distress. Head: normocephalic and atraumatic Eyes: Pupils equal round and reactive to light. EOMI. no scleral icterus. Visual gallegos poor; however, she was not able to determine how many fingers I held up when they were right in front of her. Patient has no reported history of visual deficits. Heart: regular rate and rhythm. No peripheral edema. Lungs: clear to auscultation. no wheeze, rales, or rhonchi. ABD: soft, mild tenderness in suprapubic region with associated fullness. bowel sounds present throughout. Musculoskeletal: Able to lift LUE and LLE off of bed. 5/5 bark skinner strength on L hand, 2/5 bark skinner strength with inability to relax in R hand. Inability to hold RUE extended for more than 6 seconds. Skin: warm, dry, no rash Neuro: CN II-XII intact, no focal deficits. Good sensation in bilateral UE and LE. weakness of RUE. Inability to lift RLE off of bed. Psych: Flat affect. oriented to person, place, but not to time, or situation. IVs and Medications Medications Reviewed: Medications were reviewed in detail Lab and Diagnostics Result Diagram: 11/08/16 1447 11/08/16 1447 Microbiology Urine Culture Pending X-Rays, CTs and MRIs PROCEDURE: CT BRAIN WITHOUT CONTRAST IMPRESSION: 1. Evolving left frontal subdural hematoma compared to 10/31/16 with areas of hyperdensity concerning for superimposed acute hemorrhage. 2. Moderate atrophy and chronic microvascular ischemic changes. The findings were discussed with Dr. Ronald Conley on 11/08/16 at 1:34 PM. Dictated by: Rehana Edwards M.D. on 11/08/2016 at 13:32 PROCEDURE: X-RAY CHEST ONE VIEW, PORTABLE IMPRESSION: No acute pulmonary process. 9 mm ill-defined right basilar nodular opacity as above. It is not well identified on prior exam. Three-month interval followup is recommended. Dictated by: Rehana Edwards M.D. on 11/08/2016 at 14:36 PROCEDURE: CT BRAIN WITHOUT CONTRAST ([id number]) INDICATIONS: neuro changes IMPRESSION: 1. Evolving left frontal subdural hematoma compared to 10/31/16 with areas of hyperdensity concerning for superimposed acute hemorrhage. 2. Moderate atrophy and chronic microvascular ischemic changes. The findings were discussed with Dr. Ronald Conley on 11/08/16 at 1:34 PM. Dictated by: Rehana Edwards M.D. on 11/08/2016 at 13:32 PROCEDURE: MRI BRAIN WITHOUT CONTRAST ([id number]) INDICATIONS: Altered mental status and right-sided weakness with subdural hematoma. IMPRESSION: 1. Left subdural hematoma at the vertex appears similar in size compared to the recent CT but slightly increased in size compared to the 10/31/16 CT suggesting interval hemorrhage. 2. Progressive increase in mild mass effect with slight rightward midline shift and slight asymmetric narrowing of the left basilar cisterns without definite transtentorial herniation. 3. No acute infarcts. 4. Mild chronic white matter small vessel ischemic changes and cerebral volume loss. Dictated by: Josh Vicente M.D. on 11/09/2016 at 10:09 12-lead ECG Sinus arrhythmia Assessment & Plan Patient is an 86y/o female with past medical history of HTN, DM type II non insulin dependent, R Breast Cancer, and hypothyroid presented to [facility] ED with altered mental status and right sided weakness. Patient was seen at [facility] two weeks ago for a left subdural hematoma. # Acute Expansion of Chronic Left Subdural Hematoma, POA, Active -patient was seen 8 days ago at [facility] for left subdural hematoma, evidence to suggest this is expanding on CT is seen. Patient stable at this time, [facility] has been consulted on these changes and feels patient is stable enough to stay overnight for AM MRI - MRI 11/09 bleeding slightly increased in size compared to the 10/31/16 CT suggesting interval hemorrhage.findings discussed with neurosurgery fellow at [facility] Dr Tee . he postulates increment in size more likely absorption of of fluid in to hematoma due to natural progression of hematoma phase than new bleed . recommends decadron 2mg q6h for 2 days then 2q8h for 2 days and taper off in the next few days ( 1-2 weeks) . no need to transfer to [facility] - no CVA on MRI . goal BP < 140/90 -Avoid anticoagulation. Use SCDs. -passed bedside swallow eval # Suspected Acute Cystitis, POA, Active -Positive leukocyte esterase with WBCs on UA -Levaquin IV,will discontinue antibiotics tomorrow if no further evidence of infection - Urine cultures no growth # Diabetes Mellitus type II, Chronic, POA, active. - patient takes metformin and Glimepiride -Continue Glimepiride -Hold metformin -Insuling ISS # Hypothyroidism, chronic, POA, active -Resume home levothyroxine # Hypertension, chronic, POA, active - patient takes Losartan and metoprolol succinate - Hold home meds resumed Famotidine for PPI Acetaminophen for pain Dulcolax for Constipation SCD for DVT prophylaxis Patient is admitted to inpatient status with anticipated length of stay greater than 2 mid nights, this is based on diagnosis, treatment plan, and risk of adverse events. CODE STATUS: DNR/DNI possible discharge in 1-2 days ,back to [facility] GI Prophylaxis: Proton Pump Inhibitor VTE Prophylaxis: SCDs VTE Mechanical Devices: Intermittant Pneumatic CD Resuscitation Status: DNR/DNI:Do Not Resuscitate/Intubate Limited Interventions: Medications and IV Fluid Antonio Sharif MD Nov 09, 2016 14:39
--- NOTE | 2016-11-09 18:06 | NUR ---
vOIDING Pt able to void 200ml spontaneously at 1800. Will continue to monitor.
[2016-11-09] MEDS: Ascorbic Acid 500 mg Tablet PO SCH (20:20)
[2016-11-09] MEDS ORDERED: levoFLOXacin Inj 500 MG in IV Premix 1 EACH IV SCH (20:30)
[2016-11-10] VITALS (9 sets, daily range): BP systolic 141–171; BP diastolic 65–88; PULSE 63–89; RESP 14–20; O2SAT 94–96
--- NOTE | 2016-11-10 05:49 | NUR ---
Mentation Patient woke this morning slightly more confused than she was during the evening. Spoke with daughter and she stated this has been the case the last few days and as the day goes on the patient becomes more alert and oriented. Patient quickly became more oriented as the morning progressed. Patient denies any pain.
[2016-11-10 08:22] LABS: BASOPHILS % (AUTO) 0.2 % (0-3); EOSINOPHILS % (AUTO) 0 % (0-5)
[2016-11-10 08:26] LABS: MONOCYTES % (AUTO) 5.1 % (4-12); Mean Corpuscular Hemoglobin 30.6 pg (27.0-35.0); Mean Corpuscular Volume 83.7 fL (81-100); NEUTROPHILS % (AUTO) 78.8 % (40-74); Platelet Count 227 bil/L (150-400)
[2016-11-10 08:45] LABS: Magnesium 1.9 mg/dL (1.6-2.6)
[2016-11-10] MEDS: Ascorbic Acid 500 mg Tablet PO SCH ×2 (08:45→21:48)
[2016-11-10] MEDS: MeTOProlol XL 50 mg ER24 Tablet PO SCH (08:45)
[2016-11-10] MEDS: Calcium Carbonate (Oyster Shell) 500 mg Tablet PO SCH ×2 (08:45→17:52)
[2016-11-10] MEDS: Insulin LISPRO 300 Unit/3 mL Inj SUBQ SCH ×4 (08:45→21:48)
--- NOTE | 2016-11-10 10:04 | NUR ---
Rounds 0930 notified of NA 126 with pt seemingly more confused this am, though family states she does often have early am confusion. unable to track finger or follow command to squeeze when letter A stated. Continues to have R sided weakness. MD to assess. VSS. Family at bedside. Will continue to monitor.
[2016-11-10 15:47] LABS: OSMOLALITY, URINE 555 mOs/kH2O (250-1200)
--- NOTE | 2016-11-10 16:07 | NUR ---
Status 1400 MD notified that pt appearing more confused/altered today. VSS. to complete labs. Will continue to monitor.
--- NOTE | 2016-11-10 16:08 | NUR ---
Status 1520 MD requests speech eval. Family/pt refused at this time due to inability of pt to follow commands. Family concerned. MD again notified. MD saw pt at bedside. To repeat imaging and dc steroids. Will continue to monitor.
--- NOTE | 2016-11-10 16:47 | DRSVH ---
PROCEDURE: CT BRAIN WITHOUT CONTRAST ([id number]) INDICATIONS: AMS,recent SDH TECHNIQUE: Noncontrast 4.5 mm thick angled axial sections acquired from the foramen magnum to the vertex, with c oronal reformats. COMPARISON: [facility], CT, CT BRAIN WO CON, 10/31/2016, 20:19. [facility], CT, CT BRAIN WO CON, 11/08/2016, 13:19. FINDINGS: Image quality: Excellent. The complex left subdural hematoma has an unchanged appearance when compared with the study dated 10/22 11/07. No new intracranial hemorrhage or change in the mass effect on the left cerebral hemisphere. As before, there is effacement of the posterior horn of the left lateral ventricle. The basal cisterns remain open. Deep and periventricular white matter changes likely associated with microvascular ische sarina are redemonstrated. Calvarium and visualized facial bones appear intact, without suspicious lesions. Visualized sinuses and mastoids are clear. IMPRESSION: 1. Stable appearance of a complex left subdural hematoma when compared with the study dated 11/08/16. Dictated by: Sarai Lauren M.D. on 11/10/2016 at 16:43 Approved by: Sarai Lauren M.D. on 11/10/2016 at 16:46
--- NOTE | 2016-11-10 16:52 | PCM.PNMED ---
Subjective Date of Service Nov 10, 2016 Subjective Patient was more alert ,oriented to place and person this morning. She was noted to be more confused, not oriented to place in the afternoon . Right- sided weakness unchanged. Hyponatremia noted Exam Vital Signs Vital Sign - Last Date Time Temp Pulse Resp B/P Pulse Ox O2 Delivery O2 Flow Rate FiO2 11/10/16 14:07 36.7 77 20 155/88 95 Room Air Intake and Output 11/09/16 11/09/16 11/10/16 Cumulative From/Thru 15:00 23:00 07:00 11/08/16 11:49 - 11/10/16 06:41 Intake Total 640 ml 435 ml 1225 ml Output Total 400 ml 600 ml 1100 ml 3100 ml Balance -400 ml 40 ml -665 ml -1875 ml Intake Oral 640 ml 275 ml 915 ml IV Total 160 ml 310 ml Output Urine Total 400 ml 600 ml 1100 ml 3100 ml # Voids 3 3 # Bowel Movements 2 3 5 Exam Constitutional: Awake, but tired appearing. Not oriented to person, place, time , or situation. Frail. No acute distress. Head: normocephalic and atraumatic Eyes: Pupils equal round and reactive to light. EOMI. no scleral icterus. Visual gallegos poor; however, she was not able to determine how many fingers I held up when they were right in front of her. Patient has no reported history of visual deficits. Heart: regular rate and rhythm. No peripheral edema. Lungs: clear to auscultation. no wheeze, rales, or rhonchi. ABD: soft, mild tenderness in suprapubic region with associated fullness. bowel sounds present throughout. Musculoskeletal: Able to lift LUE and LLE off of bed. 5/5 rn x ray strength on L hand, 2/5 rn x ray strength with inability to relax in R hand. Inability to hold RUE extended for more than 6 seconds. Skin: warm, dry, no rash Neuro: CN II-XII intact, no focal deficits. Good sensation in bilateral UE and LE. weakness of RUE. Inability to lift RLE off of bed. Psych: Flat affect. oriented to person, place, but not to time, or situation. IVs and Medications Medications Reviewed: Medications were reviewed in detail Lab and Diagnostics Result Diagram: 11/10/1680411/10/16804 Microbiology Urine Culture Pending X-Rays, CTs and MRIs PROCEDURE: CT BRAIN WITHOUT CONTRAST IMPRESSION: 1. Evolving left frontal subdural hematoma compared to 10/31/16 with areas of hyperdensity concerning for superimposed acute hemorrhage. 2. Moderate atrophy and chronic microvascular ischemic changes. The findings were discussed with Dr. Ronald Conley on 11/08/16 at 1:34 PM. Dictated by: Rehana Edwards M.D. on 11/08/2016 at 13:32 PROCEDURE: X-RAY CHEST ONE VIEW, PORTABLE IMPRESSION: No acute pulmonary process. 9 mm ill-defined right basilar nodular opacity as above. It is not well identified on prior exam. Three-month interval followup is recommended. Dictated by: Rehana Edwards M.D. on 11/08/2016 at 14:36 PROCEDURE: CT BRAIN WITHOUT CONTRAST ([id number]) INDICATIONS: neuro changes IMPRESSION: 1. Evolving left frontal subdural hematoma compared to 10/31/16 with areas of hyperdensity concerning for superimposed acute hemorrhage. 2. Moderate atrophy and chronic microvascular ischemic changes. The findings were discussed with Dr. Ronald Conley on 11/08/16 at 1:34 PM. Dictated by: Rehana Edwards M.D. on 11/08/2016 at 13:32 PROCEDURE: MRI BRAIN WITHOUT CONTRAST ([id number]) INDICATIONS: Altered mental status and right-sided weakness with subdural hematoma. IMPRESSION: 1. Left subdural hematoma at the vertex appears similar in size compared to the recent CT but slightly increased in size compared to the 10/31/16 CT suggesting interval hemorrhage. 2. Progressive increase in mild mass effect with slight rightward midline shift and slight asymmetric narrowing of the left basilar cisterns without definite transtentorial herniation. 3. No acute infarcts. 4. Mild chronic white matter small vessel ischemic changes and cerebral volume loss. Dictated by: Josh Vicente M.D. on 11/09/2016 at 10:09 12-lead ECG Sinus arrhythmia Assessment & Plan Patient is an 86y/o female with past medical history of HTN, DM type II non insulin dependent, R Breast Cancer, and hypothyroid presented to [facility] ED with altered mental status and right sided weakness. Patient was seen at [facility] two weeks ago for a left subdural hematoma. # acute altered mental state -worsening confusion this afternoon -due to hyponatremia vs steroid vs others -patient more confused and lethargic in the afternoon -low NA at 126 noted,urine studies sent . due to poor oral intake vs at least 2meq due to glucose due to steroid, -trial of NS at 60ml/h -monitor I/O -repeat Ct stable hematoma -hold decadron as confusion can be caused by it # hyponatremia,not poa -low NA at 126 noted,urine studies sent . 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 Patient stable at this time, [facility] has been consulted on these changes and feels patient is stable enough to stay overnight for AM MRI - MRI 11/09 bleeding slightly increased in size compared to the 10/31/16 CT suggesting interval hemorrhage.findings discussed with neurosurgery fellow at [facility] Dr Tee . he postulates increment in size more likely absorption of of fluid in to hematoma due to natural progression of hematoma phase than new bleed . recommends decadron 2mg q6h for 2 days then 2q8h for 2 days and taper off in the next few days ( 1-2 weeks) . no need to transfer to [facility] - no CVA on MRI . goal BP < 140/90 -Avoid anticoagulation. Use SCDs. -passed bedside swallow eval -PT # Suspected Acute Cystitis, POA, Active -Positive leukocyte esterase with WBCs on UA -Levaquin IV,will discontinue antibiotics today as no further evidence of infection - Urine cultures no growth # Diabetes Mellitus type II, Chronic, POA, active. - patient takes metformin and Glimepiride -Continue Glimepiride -Hold metformin -Insuling ISS -worsened by decadron now on hold # Hypothyroidism, chronic, POA, active -Resume home levothyroxine # Hypertension, chronic, POA, active - patient takes Losartan and metoprolol succinate - Hold home meds resumed Famotidine for PPI Acetaminophen for pain Dulcolax for Constipation SCD for DVT prophylaxis Patient is admitted to inpatient status with anticipated length of stay greater than 2 mid nights, this is based on diagnosis, treatment plan, and risk of adverse events. CODE STATUS: DNR/DNI possible discharge in 1-2 days ,back to [facility] GI Prophylaxis: Proton Pump Inhibitor VTE Prophylaxis: SCDs VTE Mechanical Devices: Intermittant Pneumatic CD Resuscitation Status: DNR/DNI:Do Not Resuscitate/Intubate Limited Interventions: Medications and IV Fluid Antonio Sharif MD Nov 10, 2016 16:52
[2016-11-10] MEDS: 0.9% Sodium Chloride 1,000 ML IV SCH (18:17)
[2016-11-11] VITALS (8 sets, daily range): BP systolic 130–161; BP diastolic 69–84; PULSE 60–70; RESP 14–17; O2SAT 95–100
--- NOTE | 2016-11-11 01:02 | NUR ---
Behavior At start of shift, pt tearful and crying, confused - stating that her granddaughter had called her crazy and was upset that noone had told her this before and also stating that her family (who stays at her bedside for extended periods of time) had not been present during this hospital ordeal. Tearful and upset. Daughters singing to her while held her hand. Pt finally settled down, exhausted. Sleepy. Two daughters remain at bedside. Care continues.
[2016-11-11 06:23] LABS: BASOPHILS % (AUTO) 0.3 % (0-3); EOSINOPHILS % (AUTO) 1.1 % (0-5); MONOCYTES % (AUTO) 14.3 % (4-12); Mean Corpuscular Hemoglobin 30.7 pg (27.0-35.0); Mean Corpuscular Volume 84.9 fL (81-100); NEUTROPHILS % (AUTO) 60.7 % (40-74); Platelet Count 227 bil/L (150-400)
[2016-11-11] MEDS: Insulin LISPRO 300 Unit/3 mL Inj SUBQ SCH ×4 (08:00→22:00)
[2016-11-11] MEDS: MeTOProlol XL 50 mg ER24 Tablet PO SCH (08:36)
[2016-11-11] MEDS: Ascorbic Acid 500 mg Tablet PO SCH ×2 (08:36→21:07)
[2016-11-11] MEDS: Calcium Carbonate (Oyster Shell) 500 mg Tablet PO SCH ×2 (08:36→17:55)
[2016-11-11] MEDS: 0.9% Sodium Chloride 1,000 ML IV SCH (10:45)
--- NOTE | 2016-11-11 11:26 | NUR ---
Evaluation completed. Please go to "Notes" then click on "Assessments and Notes" (bottom left corner of screen). Then select appropriate discipline tab on top of screen.
--- NOTE | 2016-11-11 12:03 | NUR ---
Evaluation completed. Please go to "Notes" then click on "Assessments and Notes" (bottom left corner of screen). Then select appropriate discipline tab on top of screen.
--- NOTE | 2016-11-11 12:37 | PCM.PNMED ---
Subjective Date of Service Nov 11, 2016 Subjective Patient alert and oriented x2. She is oriented to place and person. She also knows why she is here. Confusion seems to be improving. She was emotional and tearful this morning. Exam Vital Signs Vital Sign - Last Date Time Temp Pulse Resp B/P Pulse Ox O2 Delivery O2 Flow Rate FiO2 11/11/16 09:54 67 11/11/16 08:07 36.2 16 161/72 95 Room Air Intake and Output 11/10/16 11/10/16 11/11/16 Cumulative From/Thru 15:00 23:00 07:00 11/08/16 11:49 - 11/11/16 06:46 Intake Total 1250 ml 1061 ml 3536 ml Output Total 1050 ml 700 ml 4850 ml Balance 200 ml 361 ml -1314 ml Intake Oral 1250 ml 350 ml 2515 ml IV Total 711 ml 1021 ml Output Urine Total 1050 ml 700 ml 4850 ml # Voids 3 # Bowel Movements 0 5 Exam Constitutional: Awake, but tired appearing. Not oriented to person, place, time , or situation. Frail. No acute distress. Head: normocephalic and atraumatic Eyes: Pupils equal round and reactive to light. EOMI. no scleral icterus. Visual gallegos poor; however, she was not able to determine how many fingers I held up when they were right in front of her. Patient has no reported history of visual deficits. Heart: regular rate and rhythm. No peripheral edema. Lungs: clear to auscultation. no wheeze, rales, or rhonchi. ABD: soft, mild tenderness in suprapubic region with associated fullness. bowel sounds present throughout. Musculoskeletal: Able to lift LUE and LLE off of bed. Skin: warm, dry, no rash Neuro: CN II-XII intact, no focal deficits. Good sensation in bilateral UE and LE. weakness on right side power 3/5 on RUE and RLE .motor unchanged since admission Psych:. Oriented to person, place and situation , but not to time, IVs and Medications Medications Reviewed: Medications were reviewed in detail Lab and Diagnostics Result Diagram: 11/11/16 0533 11/11/16 0533 Microbiology Urine Culture Pending X-Rays, CTs and MRIs PROCEDURE: CT BRAIN WITHOUT CONTRAST IMPRESSION: 1. Evolving left frontal subdural hematoma compared to 10/31/16 with areas of hyperdensity concerning for superimposed acute hemorrhage. 2. Moderate atrophy and chronic microvascular ischemic changes. The findings were discussed with Dr. Ronald Conley on 11/08/16 at 1:34 PM. Dictated by: Rehana Edwards M.D. on 11/08/2016 at 13:32 PROCEDURE: X-RAY CHEST ONE VIEW, PORTABLE IMPRESSION: No acute pulmonary process. 9 mm ill-defined right basilar nodular opacity as above. It is not well identified on prior exam. Three-month interval followup is recommended. Dictated by: Rehana Edwards M.D. on 11/08/2016 at 14:36 PROCEDURE: CT BRAIN WITHOUT CONTRAST ([id number]) INDICATIONS: neuro changes IMPRESSION: 1. Evolving left frontal subdural hematoma compared to 10/31/16 with areas of hyperdensity concerning for superimposed acute hemorrhage. 2. Moderate atrophy and chronic microvascular ischemic changes. The findings were discussed with Dr. Ronald Conley on 11/08/16 at 1:34 PM. Dictated by: Rehana Edwards M.D. on 11/08/2016 at 13:32 PROCEDURE: MRI BRAIN WITHOUT CONTRAST ([id number]) INDICATIONS: Altered mental status and right-sided weakness with subdural hematoma. IMPRESSION: 1. Left subdural hematoma at the vertex appears similar in size compared to the recent CT but slightly increased in size compared to the 10/31/16 CT suggesting interval hemorrhage. 2. Progressive increase in mild mass effect with slight rightward midline shift and slight asymmetric narrowing of the left basilar cisterns without definite transtentorial herniation. 3. No acute infarcts. 4. Mild chronic white matter small vessel ischemic changes and cerebral volume loss. Dictated by: Josh Vicente M.D. on 11/09/2016 at 10:09 12-lead ECG Sinus arrhythmia Assessment & Plan Patient is an 86y/o female with past medical history of HTN, DM type II non insulin dependent, R Breast Cancer, and hypothyroid presented to [facility] ED with altered mental status and right sided weakness. Patient was seen at [facility] two weeks ago for a left subdural hematoma. # acute altered mental state -worsening confusion 11/10,improved 11/11 -due to hyponatremia vs steroid vs others -patient was more confused and lethargic on 11/10 which has improved now -low NA at 126 noted,urine studies consistent with SAIDH . due to poor oral intake vs at least 2meq due to glucose due to steroid, -trial of NS at 60ml/h started,Na improved to 131 . mentation and sodium improved ,will consider instituting fluid restriction if Na drops again and becomes symptomatic -monitor I/O -repeat Ct 11/10 stable hematoma -discontinue decadron as confusion can be caused by it. discussed with neurosurgeon fellow Dr Arcos at [facility] on 11/11 .he agrees with stopping decadron. he reviewed latest images and recommends doing EEG to r/o subclinical seizures # hyponatremia,not poa -low NA at 126 noted on 11/10,urine studies consistent with SAIDH . 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 Patient stable at this time, [facility] has been consulted on these changes and feels patient is stable - MRI 11/09 bleeding slightly increased in size compared to the 10/31/16 CT suggesting interval hemorrhage.findings discussed with neurosurgery fellow at [facility] Dr Tee on 11/09 . he postulates increment in size more likely absorption of of fluid in to hematoma due to natural progression of hematoma phase than new bleed . recommends decadron 2mg q6h for 2 days then 2q8h for 2 days and taper off in the next few days ( 1-2 weeks) . no need to transfer to [facility] - no CVA on MRI . goal BP < 140/90 -Avoid anticoagulation. Use SCDs. -passed bedside swallow eval -PT # Suspected Acute Cystitis, POA, Active -Positive leukocyte esterase with WBCs on UA -Levaquin IV,will discontinue antibiotics today as no further evidence of infection - Urine cultures no growth # Diabetes Mellitus type II, Chronic, POA, active. - patient takes metformin and Glimepiride -Continue Glimepiride -Hold metformin -Insuling ISS -worsened by decadron now on hold # Hypothyroidism, chronic, POA, active -Resume home levothyroxine # Hypertension, chronic, POA, active - patient takes Losartan and metoprolol succinate - Hold home meds resumed Famotidine for PPI Acetaminophen for pain Dulcolax for Constipation SCD for DVT prophylaxis Patient is admitted to inpatient status with anticipated length of stay greater than 2 mid nights, this is based on diagnosis, treatment plan, and risk of adverse events. CODE STATUS: DNR/DNI possible discharge in 1-2 days ,back to [facility] GI Prophylaxis: Proton Pump Inhibitor VTE Prophylaxis: SCDs VTE Mechanical Devices: Intermittant Pneumatic CD Resuscitation Status: DNR/DNI:Do Not Resuscitate/Intubate Limited Interventions: Medications and IV Fluid Antonio Sharif MD Nov 11, 2016 12:37
--- NOTE | 2016-11-11 13:45 | NUR ---
Social Work- Initial Assessment/ Multidisciplinary Rounds Data: See Initial Assessment and Advance Directive Intervention for additional information. Pt discussed in rounds. Pt is admitted from [facility] for CVA-AMS. PT to evaluate pt. Pt is not ready for discharge at this time. Pt will need to return to SNF at discharge. Pt is a 86 year old admitted for CVA-AMS per H&P. Pt's insurance is [employer] and [employer]. Pt's PCP is CURTIS Freeman. Pt's readmit risk score is 3/8 high risk. SW met with pt, , and daughters at bedside regarding discharge plan, SW role explained. Pt alert but experiencing some confusion during assessment. Pt's and daughters primarily completed assessment though pt was able to answer appropriately when given the chance to process. Pt's capacity for self-care assessed. Pt resides in [place] in a home with spouse, but pt has been at [facility] for rehab after last admission. Pt is independent with ADLs and self-care at baseline, Pt is hopeful to return to that level of functioning after rehab [place] [facility]. Pt uses no DME at baseline. Pt has no history with services. Pt has no history with any other SNF services. Pt has no DPOA on file and SW requested that pt bring in copy of DPOA. Pt to return to [facility] to complete her rehab stay at d/c. Pt and family agreeable to this. SW provided Discharge planning Checklist and requested that pt contact [employer] if needs identified. SW provided phone number and plan on whiteboard. Pt agreeable. SW will continue to follow. Assessment: Pt for whom return to SNF is medically indicated. Plan: Pt will return to [facility] at discharge to complete rehab stay. Paperwork placed in hard chart. SW will continue to follow. ANDREA Garcia Addendum: 11/11/16 at 1348 by EVERARDO NEGRETE Amended: Links added.
--- NOTE | 2016-11-11 21:58 | PROCED ---
[address] [address] EEG PATIENT: JOCELYNE ALONSO : 1930 MR#: [id number] ADMIT: 11/08/2016 JOB ID: [id number] DATE OF SERVICE: 11/11/2016 REQUESTING PHYSICIAN: Antonio Sharif MD. CLINICAL HISTORY: The patient is an 86-year-old female with history of a subdural hematoma. MEDICATIONS: Not noted. TECHNICAL DESCRIPTION: This digital EEG was recorded using 25 scalp and ear configuration with 2 EKG electrodes. Reviewed in bipolar and referential montages. Reformatted in the 10-20 [employer] Electrode Placement System. DESCRIPTION: While awake and with eyes closed, there are 8 hertz rhythmic and symmetric waveforms seen over the occipital head region which attenuated with eye opening. Throughout the recording there is considerable muscle artifact noted, particularly in the frontal head region which at times obscures the recording. The patient enters sleep, at which time there is further slowing of the background rhythm and appropriate sleep architecture noted in both hemispheres.There are no focal, lateralizing or epileptiform abnormalities seen awake or sleep. ACTIVATION: Photic activation does not reveal any photic driving or photo paroxysmal discharges. Hyperventilation was not performed. RHYTHM STRIP: Regular rhythm. IMPRESSION: Normal electroencephalogram, patient awake and asleep. No electrophysiologic seizures noted. No seizure focus noted. A normal EEG does not eliminate the possibility of epilepsy. Consider repeat EEG if there is strong suspicion of epilepsy. Clinical correlation advised. [facility]
[2016-11-12 00:14] VITALS: BP 168/73; PULSE 61; RESP 17; O2SAT 97
--- NOTE | 2016-11-12 00:51 | NUR ---
Mentation/Activity On initial assessment, patient appeared to be in good spirits ( singing with daughters). Patient answered assessment questions appropriately. Patient had equal strength with hand squeezes except right arm is flexed and patient does not move it on her own. Blood pressure 168/73. VSS. Pain at 2/10 on pain scale. Acetaminophen administered. Call light within reach. Care continues.
[2016-11-12 05:05] VITALS: BP 139/78; PULSE 73; RESP 17; O2SAT 96
[2016-11-12 07:44] LABS: BASOPHILS % (AUTO) 0.5 % (0-3); MONOCYTES % (AUTO) 13.2 % (4-12); Mean Corpuscular Hemoglobin 30.5 pg (27.0-35.0); Mean Corpuscular Volume 84.7 fL (81-100); Platelet Count 220 bil/L (150-400)
[2016-11-12] MEDS: Ascorbic Acid 500 mg Tablet PO SCH (08:09)
[2016-11-12 08:10] LABS: Magnesium 1.9 mg/dL (1.6-2.6); Phosphorus 2.8 mg/dL (2.5-4.9)
[2016-11-12] MEDS: Calcium Carbonate (Oyster Shell) 500 mg Tablet PO SCH (08:10)
[2016-11-12] MEDS: MeTOProlol XL 50 mg ER24 Tablet PO SCH (08:11)
[2016-11-12] MEDS: Insulin LISPRO 300 Unit/3 mL Inj SUBQ SCH (08:13)
--- NOTE | 2016-11-12 09:19 | PCM.DIMED ---
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 # Hypothyroidism, chronic, POA, active # Hypertension, chronic, POA, active Diet Discharge Diet: Low fat, Low Sodium, Diabetic Activity Discharge Activity: Outpatient Physical Therapy (at [facility]) Call your provider Call your provider for: Fever or Chills, Shortness of breath, Bleeding, Chest pain, Vomitting, Excessive diarrhea, Weakness (unilateral) Patient Instructions Patient Instructions You were hospitalized due to altered mental status/acute confusion, waxing and waning . Expansion of subdural hematoma noted on repeat MRI. It is possible you may had rebleeding or it can as well be normal progression of blood clot with fluid absorption in to blood clot per neurosurgeon at [facility] . You were initially started on decadron/steroid but confusion worsened and hence decadron discontinued. Please follow-up with [facility] neurosurgery in 1-2 weeks. Please follow-up with PCP 1 week after discharge from senior care facility Follow-up Provider: Aspen [facility] Follow-up with PCP in: 1 week (1 week after discharge from SNF) Follow-up in: 1 week (neurosurgery at [facility] ) Antonio Sahrif MD Nov 12, 2016 09:19
--- NOTE | 2016-11-12 09:40 | NUR ---
HALFWAY TRANSFER: Faxed orders to [facility] and placed copy in the chart. Left message for admissions at [facility] and requested a NOON pickle processor time for patient. Updated MILITARY TECHNICIAN AND RN
[2016-11-12 10:29] VITALS: PULSE 72
--- NOTE | 2016-11-12 10:57 | NUR ---
Social Work- Discharge Data: EMR reviewed. Pt is on day 4 of hospitalization for CVA-AMS. Pt is medically stable for d/c at this time. Pt to d/c back to [facility]. Edith, admissions at [facility], is agreeable to pt's return today. Pt discussed in multidisciplinary rounds and PT is going to get pt to chair this morning and then it will be determined if pt needs BLS transport to [facility]. At this time, wheelchair transportation is scheduled for noon. [facility] faxed packet and orders. Paperwork in pt's chart. RN, UC, pt/family and [facility] all updated and agreeable to plan. Assessment: Pt for whom SNF continues to be medically necessary Plan: Pt to d/c to [facility] today at noon. RN, UC, pt/family and [facility] all updated and agreeable to plan. Paulette Umanzor MSW
--- NOTE | 2016-11-12 12:37 | NUR ---
DC Pt discharges to [facility]. Max assist pivot to . Family to ride with transport to [facility]. Report phoned into [facility]. Denies CP, SOB, Nausea at this time. Pain minimal head right side. Rt sided weakness continues but does seem to be improving. Care discontinues Family aware of transport.
--- NOTE | 2016-11-12 13:32 | PCM.DC.MED ---
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 # Hypothyroidism, chronic, POA, active # Hypertension, chronic, POA, active Consultations Consulted neurosurgery fellow Dr. Arcos at [facility] Procedures XRay, CTs & MRIs PROCEDURE: CT BRAIN WITHOUT CONTRAST IMPRESSION: 1. Evolving left frontal subdural hematoma compared to 10/31/16 with areas of hyperdensity concerning for superimposed acute hemorrhage. 2. Moderate atrophy and chronic microvascular ischemic changes. The findings were discussed with Dr. Ronald Conley on 11/08/16 at 1:34 PM. Dictated by: Rehana Edwards M.D. on 11/08/2016 at 13:32 PROCEDURE: X-RAY CHEST ONE VIEW, PORTABLE IMPRESSION: No acute pulmonary process. 9 mm ill-defined right basilar nodular opacity as above. It is not well identified on prior exam. Three-month interval followup is recommended. Dictated by: Rehana Edwards M.D. on 11/08/2016 at 14:36 PROCEDURE: CT BRAIN WITHOUT CONTRAST ([id number]) INDICATIONS: neuro changes IMPRESSION: 1. Evolving left frontal subdural hematoma compared to 10/31/16 with areas of hyperdensity concerning for superimposed acute hemorrhage. 2. Moderate atrophy and chronic microvascular ischemic changes. The findings were discussed with Dr. Ronald Conley on 11/08/16 at 1:34 PM. Dictated by: Rehana Edwards M.D. on 11/08/2016 at 13:32 PROCEDURE: MRI BRAIN WITHOUT CONTRAST ([id number]) INDICATIONS: Altered mental status and right-sided weakness with subdural hematoma. IMPRESSION: 1. Left subdural hematoma at the vertex appears similar in size compared to the recent CT but slightly increased in size compared to the 10/31/16 CT suggesting interval hemorrhage. 2. Progressive increase in mild mass effect with slight rightward midline shift and slight asymmetric narrowing of the left basilar cisterns without definite transtentorial herniation. 3. No acute infarcts. 4. Mild chronic white matter small vessel ischemic changes and cerebral volume loss. Dictated by: Josh Vicente M.D. on 11/09/2016 at 10:09 ECG 12 Lead Sinus arrhythmia Other Diagnostics EEG DATE OF SERVICE: 11/11/2016 REQUESTING PHYSICIAN: Antonio Sharif MD. CLINICAL HISTORY: The patient is an 86-year-old female with history of a subdural hematoma. MEDICATIONS: Not noted. TECHNICAL DESCRIPTION: This digital EEG was recorded using 25 scalp and ear configuration with 2 EKG electrodes. Reviewed in bipolar and referential montages. Reformatted in the 10-20 [employer] Electrode Placement System. DESCRIPTION: While awake and with eyes closed, there are 8 hertz rhythmic and symmetric waveforms seen over head region which attenuated with eye opening. Throughout the recording there is considerable muscle artifact noted, particularly in the frontal head region. There are no focal lateralizing or epileptiform abnormalities seen. Activation: Photic activation does not reveal any photic driving or photo paroxysmal discharges. Hyperventilation was not performed. The patient enters sleep, at which time there is further slowing of the background rhythm and appropriate sleep architecture noted in both hemispheres. Rhythm strip: Regular rhythm. IMPRESSION: Normal electroencephalogram, patient awake and asleep. No electrophysiologic seizures noted. No seizure focus noted. Clinical correlation advised. Genesis Zavala MD 11/11/16 [id number] Report status: Draft Transcribed by: DONAL 11/11/16 4409 Brief History per HPI Patient is an 86y/o female with past medical history of HTN, DM type II non insulin dependent, R Breast Cancer, and hypothyroid presented to [facility] ED with altered mental status and right sided weakness. Patient was seen at [facility] two weeks ago for a left subdural hematoma. A CT indicated a subdural chronic and acute hematoma over the left posterior frontal and parietal lobes with compression of the ventricles and sulci on the left. She was discharged from [facility] 5 days ago. Today, patient's daughter visited her at [facility], and noticed that she was not able to complete her sentences, and would stop speaking in the middle of her thoughts. She would say "I don't understand what is going on." She also reported increasing right upper extremity and right lower extremity. Patient was unable to initiate any movement in her right arm. It is noted that the patient had residual right sided weakness from the subdural one week ago. Patient answers questions regarding current physical state, but does not remember the events leading up to her visit here. Daughter states that she has had 3-4 falls since July and August. She currently denies CP, SOB, ABD pain, N/V/D, headache, difficulty urinating, urinary hesitancy, or back pain. In the ED, patient received a CT noncontrast of brain. Her repeat CT scan demonstrates an evolving left sided subdural hematoma with concern for possible acute hemorrhage. [facility] neurosurgery Dr. Cook consulted; after examining the images, he feels that this is not an acute bleed and that the membrane around the area of concern is thicker, not representing any new injury that would require intervention at this time. He does not recommend transfer or further intervention with neurosurgery aside from routine follow-up. per Dr. Yael MD Hospital Course Patient is an 86y/o female with past medical history of HTN, DM type II non insulin dependent, R Breast Cancer, and hypothyroid presented to [facility] ED with altered mental status and right sided weakness. Patient was seen at [facility] two weeks ago for a left subdural hematoma. 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 due to poor oral intake vs at least 2meq due to glucose due to steroid as she had blood glucose in 250's due to initialtion of decadron a day before , -trial of NS at 60ml/h started,Na improved to 131 . mentation and sodium improved ,may need to consider instituting fluid restriction to 1.5-2 L if Na drops again and becomes symptomatic -repeated CT brain 11/10 due to acute confusion and shows stable hematoma -discontinued decadron 11/11 as confusion can be caused by it. discussed with neurosurgeon fellow Dr Arcos at [facility] on 11/11 .he agrees with stopping decadron. he reviewed latest images and recommends doing EEG to r/o subclinical seizures . EEG negative. -patient may have waxing and waxing AMS and high risk for rehospitalization # hyponatremia,not poa,improved -low NA at 126 noted on 11/10,urine studies consistent with SAIDH . cerebral salt wasting unlikely -due to poor oral intake vs SAIDH due to SDH vs at least 2meq due to hyperglycemia due to steroid, -UOP not that excessive,UOP 2L /24h,-1.3 balance,mild SAIDH likely -trial of NS at 60ml/h , # Acute Expansion of Chronic Left Subdural Hematoma, POA, Active -patient was seen 8 days prior to current hospitalization at [facility] for left subdural hematoma, evidence to suggest this is expanding on CT is seen. Patient stable at this time, [facility] has been consulted on these changes and feels patient is stable - MRI 11/09 bleeding slightly increased in size compared to the 10/31/16 CT suggesting interval hemorrhage.findings discussed with neurosurgery fellow at [facility] Dr Tee on 11/09 . he postulates increment in size more likely absorption of of fluid in to hematoma due to natural progression of hematoma phase than new bleed . recommends decadron 2mg q6h for 2 days then 2q8h for 2 days and taper off in the next few days ( 1-2 weeks) . no need to transfer to [facility] - no CVA on MRI . goal BP < 140/90 -Avoid anticoagulation. Use SCDs. -passed bedside swallow eval Continue physical therapy at [facility] # Suspected Acute Cystitis, POA, Active -Positive leukocyte esterase with WBCs on UA -Levaquin IV 2 doses given, discontinued antibiotics 11/11 as no further evidence of infection - Urine cultures mixed aubree. Procal negative # Diabetes Mellitus type II, Chronic, POA, active. - patient takes metformin and Glimepiride -Continue Glimepiride -Held metformin. Resume upon discharge -Insuling ISS -worsened by decadron now discontinued # Hypothyroidism, chronic, POA, active -Resumed home levothyroxine # Hypertension, chronic, POA, active - patient takes Losartan and metoprolol succinate -Goal BP < 140/90 possible Famotidine for PPI Acetaminophen for pain Dulcolax for Constipation SCD for DVT prophylaxis CODE STATUS: DNR/DNI discharge back to [facility] Exam Vital Signs (Last) Date Time Temp Pulse Resp B/P Pulse Ox O2 Delivery O2 Flow Rate FiO2 11/12/16 10:29 72 11/12/16 05:05 36.5 17 139/78 96 Room Air Exam Constitutional: Awake, but tired appearing. Not oriented to person, place, time , or situation. Frail. No acute distress. Head: normocephalic and atraumatic Eyes: Pupils equal round and reactive to light. EOMI. no scleral icterus. Visual gallegos poor; however, she was not able to determine how many fingers I held up when they were right in front of her. Patient has no reported history of visual deficits. Heart: regular rate and rhythm. No peripheral edema. Lungs: clear to auscultation. no wheeze, rales, or rhonchi. ABD: soft, mild tenderness in suprapubic region with associated fullness. bowel sounds present throughout. Musculoskeletal: Able to lift LUE and LLE off of bed. Skin: warm, dry, no rash Neuro: CN II-XII intact, no focal deficits. Good sensation in bilateral UE and LE. weakness on right side power 3/5 on RUE and RLE .motor unchanged since admission Psych:. Oriented to person, place and situation , but not to time, Test 11/08/16 13:36 11/08/16 14:47 11/10/16 08:05 11/10/16 14:00 Urine Color Straw (YELLOW) Urine Appearance Hazy (CLEAR,HAZY) Urine pH 7.0 (5.0-8.0) Urine Specific [place] 1.010 (1.003-1.035) Urine Protein Negativemg/dL (NEG,TRACE) Urine Glucose (UA) 100mg/dL (NEGATIVE) Urine Ketones Negativemg/dL (NEGATIVE) Urine Occult Blood Trace (NEGATIVE) Urine Nitrite Negative (NEGATIVE) Urine Bilirubin Negative (NEGATIVE) Urine Urobilinogen Normalmg/dL (NORMAL) Urine Leukocyte Esterase Small (NEGATIVE) Urine RBC 3-10/hpf (0-2) Urine WBC 11-50/hpf (0-5) Urine Epithelial Cells Occasional/hpf (NONE-MOD) Urine Crystals None seen (NONE SEEN) Urine Bacteria Few/hpf (NONE-FEW) Urine Hyaline Casts None/lpf (NONE) Urine Granular Casts None seen (NONE SEEN) Urine Waxy Casts None seen (NONE SEEN) Urine Red Blood Cell Casts None seen (NONE SEEN) Urine White Blood Cell Casts None seen (NONE SEEN) Urine Mucus None seen (None Seen) Urine Trichomonas None seen (NONE SEEN) Urine Yeast None (NONE SEEN) Urinalysis Comment None Urine Culture Reflexed Indicated Alcohols < 10mg/dL (0-10) Osmolality 273 (275-300) Procalcitonin 0.02ng/mL (0.00-0.08) Urine Osmolality 555mOs/kH2O (250-1200) Urine Random Sodium 32mEq/L Test 11/11/16 05:33 11/12/16 07:35 Thyroid Stimulating Hormone (TSH) 1.360uIU/mL (0.450-4.500) Free Thyroxine 1.42ng/dL (0.82-1.77) White Blood Count 6.2th/mm3 (3.8-10.1) Red Blood Count 4.43mil/mm3 (3.90-5.20) Hemoglobin 13.5g/dL (12.0-15.6) Hematocrit 37.5% (35.0-46.0) Mean Corpuscular Volume 84.7fL (81-100) Mean Corpuscular Hemoglobin 30.5pg (27.0-35.0) Mean Corpuscular Hemoglobin Concent 36.0% (32.0-37.0) Red Cell Distribution Width 12.1% (12.3-15.4) Platelet Count 220bil/L (150-400) Neutrophils (%) (Auto) 65.0% (40-74) Lymphocytes (%) (Auto) 19.0% (14-46) Monocytes (%) (Auto) 13.2% (4-12) Eosinophils (%) (Auto) 2.0% (0-5) Basophils (%) (Auto) 0.5% (0-3) Sodium Level 130mEq/L (134-144) Potassium Level 4.1mEq/L (3.5-5.2) Chloride Level 95mEq/L (97-108) Carbon Dioxide Level 20mmol/L (18-29) Blood Urea Nitrogen 13mg/dL (8-27) Creatinine 0.61mg/dL (0.57-1.00) Estimat Glomerular Filtration Rate 133mL/min (>59) Glucose Level 154mg/dL (60-99) Calcium Level 9.0mg/dL (8.5-10.1) Phosphorus Level 2.8mg/dL (2.5-4.9) Magnesium Level 1.9mg/dL (1.6-2.6) Total Bilirubin 0.5mg/dL (0.0-1.2) Aspartate Amino Transf (AST/SGOT) 20U/L (0-50) Alanine Aminotransferase (ALT/SGPT) 38U/L (0-32) Alkaline Phosphatase 59U/L (25-165) Total Protein 6.8g/dL (6.4-8.4) Albumin 4.1g/dL (3.4-5.0) Microbiology Results Urine Culture Pending Discharge Medications Discharge Medications Ascorbate Calcium (Vitamin C) 500 Mg Tablet 500 MG PO BID (Reported) Calcium Carb & Cit/Vitamin D3 (Citracal + D ER Tablet) 1 Each Tablet.er 1 EACH PO BID (Reported) Cholecalciferol (Vitamin D3) (Vitamin D) 1,000 Unit Capsule 1,000 UNIT PO BID ( Reported) Glimepiride (Glimepiride) 1 Mg Tablet 1 MG PO DAILYAC (Reported) Levothyroxine (Levoxyl) 50 Mcg Tablet 50 MCG PO QAM (Reported) Losartan Potassium (Losartan Potassium) 50 Mg Tablet 50 MG PO QAM (Reported) Metformin (Glucophage) 1,000 Mg Tablet 1,000 MG PO BID (Reported) Metoprolol Succinate ER (Toprol XL) 100 Mg Tablet 100 MG PO DAILY (Reported) Simvastatin (Simvastatin) 20 Mg Tablet 20 MG PO Q2DAY (Reported) As needed Acetaminophen (Acetaminophen) 325 Mg Tablet 650 MG PO Q4H PRN PRN For Pain ( Reported) Bisacodyl (Dulcolax Rectal) 10 Mg Supp.rect 10 MG RC DIRECTED PRN PRN For Constipation (Reported) Magnesium Hydroxide (Milk of Magnesia) 400 Mg/5 Ml Oral.susp 30 ML PO DIRECTED PRN PRN For Constipation (Reported) Na Phos,M-B/Na Phos,Di-Ba (Fleet Enema) 133 Ml Enema 133 ML RC DIRECTED PRN PRN For Constipation (Reported) Polyethylene Glycol 3350 (Miralax) 17 Gm Powd.pack 17 GM PO DAILY PRN PRN For Constipation (Reported) Followup Plan Discharge Diet: Low fat, Low Sodium, Diabetic Discharge Activity: Outpatient Physical Therapy (at [facility]) Patient Instructions You were hospitalized due to altered mental status/acute confusion, waxing and waning . Expansion of subdural hematoma noted on repeat MRI. It is possible you may had rebleeding or it can as well be normal progression of blood clot with fluid absorption in to blood clot per neurosurgeon at [facility] . You were initially started on decadron/steroid but confusion worsened and hence decadron discontinued. Please follow-up with [facility] neurosurgery in 1-2 weeks. Please follow-up with PCP 1 week after discharge from [facility] facility Follow-up Provider: Aspen Lincoln Follow-up with PCP in: 1 week (1 week after discharge from SNF) Follow-up in: 1 week (neurosurgery at [facility] ) Antonio Sharif MD Nov 12, 2016 13:32 Follow-up with PCP in: 1 week (1 week after discharge from SNF) Follow-up in: 1 week (neurosurgery at [facility] ) Antonio Sharif MD Nov 12, 2016 13:32
== END 2016-11-12 12:35 | DRG 949 ==
LOC: SED 11:39 → EDBD 11:39 → OSC 17:25
PROVIDERS: ADMIT Internal Medicine; ATTEND Internal Medicine
DX: S06.5X0D Traumatic subdural hemorrhage without loss of consciousness, subsequent encounter (principal); G93.6 Cerebral edema; N30.00 Acute cystitis without hematuria; E22.2 Syndrome of inappropriate secretion of antidiuretic hormone; G81.91 Hemiplegia, unspecified affecting right dominant side; E03.9 Hypothyroidism, unspecified; I10 Essential (primary) hypertension; E78.5 Hyperlipidemia, unspecified; E11.9 Type 2 diabetes mellitus without complications; Z79.84 Long term (current) use of oral hypoglycemic drugs; Z66 Do not resuscitate